=== PATIENT | male | born 1960 | race Two or more races ===

== ENCOUNTER 2023-01-05 11:07 | Inpatient (IN) | payer MEDICAID ==
[~2023-01-05] VITALS: Ht 165.1 cm; Wt 59.0 kg
--- NOTE | 2023-01-05 11:08 | NUR ---
C/O NAUSEA VOMITING, ABDOMINAL PAIN X 2 DAYS, WEAKNESS X 5 WEEKS. PT TRANSFERRED TO BED FROM WHEELCHAIR. PT WAS ABLE TO STAND AND PIVOT TO BED WITH ASSISTANCE. CONNECTED TO MONITOR. VITAL SIGNS STABLE. AAOX4. BREATHING EVEN AND NON LABORED. SAFETY PRECAUTIONS IN PLACE. AWAITING MD ORDERS.
--- NOTE | 2023-01-05 11:20 | NUR ---
DR. HINOJOSA AT BEDSIDE FOR EVAL
--- NOTE | 2023-01-05 11:29 | NUR ---
ESTABLISHED IV ACCESS 18G LEFT AC. BLOOD DRAWN AND SENT TOT LAB.
[2023-01-05] MEDS ORDERED: ONDANSETRON HCL/PF 4 MG/2 ML VIAL IVP ONE (11:30)
[2023-01-05 11:45] LABS: BASOPHILS # (AUTO) 0.1 K/uL (0.0-0.2); BASOPHILS % (AUTO) 0.5 % (0.0-2.0); EOSINOPHILS % (AUTO) 0.2 % (0.0-6.0); HEMATOCRIT 43 % (39-51); HEMOGLOBIN 14.1 g/dL (13.5-17.5); LYMPHOCYTES # (AUTO) 1.1 K/uL (0.8-4.8); LYMPHOCYTES % (AUTO) 9.1 % (20.0-44.0); MEAN CORPUSCULAR HGB CONC 33 g/dl (31.0-36.0); MEAN CORPUSCULAR VOLUME 94 fL (80-96); MONOCYTES % (AUTO) 8.2 % (2.0-12.0); NEUTROPHILS # (AUTO) 10.1 K/uL (1.8-8.9); PLATELET COUNT (AUTO) 406 K/uL (150-450); RED BLOOD CELL COUNT(AUTO) 4.57 MIL/uL (4.5-6.0); WHITE BLOOD COUNT (AUTO) 12.3 K/uL (4.3-11.0)
[2023-01-05] MEDS ORDERED: ONDANSETRON HCL/PF 4 MG/2 ML VIAL ONE (11:45)
--- NOTE | 2023-01-05 11:48 | NUR ---
PATIENT TAKEN TO CT VIA JAKI
--- NOTE | 2023-01-05 12:06 | NUR ---
SWAB FOR COVID19 SENT TO LAB
--- NOTE | 2023-01-05 12:10 | NUR ---
COLLECTIONS MANAGER AT BEDSIDE
[2023-01-05 12:11] LABS: ALBUMIN 2.3 g/dL (3.4-5.0); BILIRUBIN,DIRECT 0.1 mg/dL (0.0-0.2); BILIRUBIN,TOTAL 0.3 mg/dL (0.2-1.0); CALCIUM, SERUM 9.1 mg/dL (8.5-10.1); POTASSIUM 3.6 mmol/L (3.5-5.1); TOTAL PROTEIN, SERUM 7.6 g/dL (6.4-8.2)
--- NOTE | 2023-01-05 12:24 | NUR ---
CONVEYOR LINE BATTERY CHARGER AT BEDSIDE.
[2023-01-05] MEDS ORDERED: Thiamine 500 MG in IV D5W 250 ML IV SCH (12:30)
[2023-01-05] MEDS ORDERED: IV NS 0.9% 1,000 ML IV ONE (12:30)
[2023-01-05] MEDS ORDERED: FOLIC ACID 1 MG TABLET PO ONE (12:30)
[2023-01-05] MEDS ORDERED: Thiamine 100 MG in IV D5W 50 ML IV SCH (12:30)
[2023-01-05] MEDS ORDERED: Thiamine 500 MG in IV D5W 250 ML IV ONE (12:30)
[2023-01-05] MEDS ORDERED: Thiamine 100 MG/ML VIAL IV ONE (12:30)
--- NOTE | 2023-01-05 12:32 | NUR ---
MOVE SHEET SUBMITTED.
[2023-01-05] MEDS ORDERED: MULTIVITAMINS,THERAGRAN 1 UDTAB TABLET ONE (12:47)
[2023-01-05] MEDS ORDERED: FOLIC ACID 1 MG TABLET ONE (12:47)
[2023-01-05] MEDS: MULTIVITAMINS,THERAGRAN 1 UDTAB TABLET PO SCH (12:50)
--- NOTE | 2023-01-05 13:00 | NUR ---
DR HINOJOSA SPEAKING W/ DR VAIL, RADIOLOGIST
--- NOTE | 2023-01-05 13:04 | NUR ---
CALLED SURGERY, DR. COKER [phone] HINOJOSA.
[2023-01-05 13:05] LABS: ACETAMINOPHEN < 10 ug/ml (10-30); ALCOHOL, BLOOD < 3 mg/dL (0-0)
[2023-01-05 13:10] LABS: SERUM AMMONIA 50 umol/L (11-32)
--- NOTE | 2023-01-05 13:13 | NUR ---
[facility] CALLED HOGSHEAD MAT ASSEMBLER PAGED.
[2023-01-05] MEDS ORDERED: VANCOMYCIN 1 GM in IV D5W 250 ML IV ONE (13:30)
[2023-01-05] MEDS ORDERED: CEFEPIME 1 GM in IV D5W 50 ML IV ONE (13:30)
--- NOTE | 2023-01-05 13:45 | NUR ---
ROOM 314-2
[2023-01-05] MEDS ORDERED: Z GUARD REMEDY 4 OZ OINT TP PRN (14:00)
[2023-01-05] MEDS ORDERED: MAGNESIUM HYDROXIDE 30 ML UDC PO PRN (14:00)
[2023-01-05] MEDS ORDERED: ONDANSETRON HCL/PF 4 MG/2 ML VIAL IVP PRN (14:00)
[2023-01-05] MEDS ORDERED: ACETAMINOPHEN 325 MG TABLET PO PRN (14:00)
[2023-01-05] MEDS ORDERED: MAG HYDROX/AL HYDROX/SIMETH 30 ML UDC PO PRN (14:00)
[2023-01-05] MEDS ORDERED: MORPHINE SULFATE INJ 2 MG/ML DISP.SYRIN IV PRN (14:00)
[2023-01-05] MEDS ORDERED: MECL-182 PO (14:03)
--- NOTE | 2023-01-05 14:10 | NUR ---
REPORT GIVEN TO VIRI RN ROOM 314-2 FOR HAYDEN
--- NOTE | 2023-01-05 14:40 | NUR ---
PT TRANSFERRED TO 314 VIA [facility] ACLS PROTOCOL. WARM HANDOFF GIVEN TO RN ASSIGNED.
--- NOTE | 2023-01-05 15:00 | NUR ---
ADMISSION NOTE RECEIVED PATIENT AWAKE FROM ER VIA GURNEY C/O NAUSEA VOMITING, ABDOMINAL PAIN X 2 DAYS, WEAKNESS X 5 WEEKS A/OX4. ON RA, TOLERATING WELL. NO PAIN OR DISCOMFORT AT THIS TIME. INITIAL VITALS TAKEN, STABLE AND RECORDED. INITIAL ASSESSMENT DONE. WITH IV ACCESS AT LAC G18. SKIN IS INTACT, NOTIFIED DR. ANTONY OF THE ADMISSION. KEPT PATIENT COMFORTABLE. SAFETY MEASURES MAINTAINED: BED LOCKED AND IN LOWEST POSITION, HOB ELEVATED, SIDE RAILS UP x2, CALL LIGHT WITHIN REACH. WILL CONTINUE TO MONITOR.
[2023-01-05] MEDS: IV NS 0.9% 1,000 ML IV SCH (15:14)
[2023-01-05 16:00] VITALS: BP 167/90
--- NOTE | 2023-01-05 18:00 | NUR ---
RN NOTES PATIENT REFUSED DVT PUMP. WILL MONITOR.
--- NOTE | 2023-01-05 18:36 | NUR ---
RN CLOSING NOTES PATIENT AWAKE IN BED, A/OX4. ON RA, TOLERATING WELL. NO PAIN OR DISCOMFORT AT THIS TIME. ON RA, TOLERATING WELL. WITH IV ACCESS AT LAC G18 WITH NS AT 100/ML.. KEPT PATIENT COMFORTABLE. ALL ORDERS CARRIED OUT. DUE MEDS GIVEN. SAFETY MEASURES MAINTAINED: BED LOCKED AND IN LOWEST POSITION, HOB ELEVATED, SIDE RAILS UP x2, CALL LIGHT WITHIN REACH. WILL ENDORSED TO STAPLE PROCESSING MACHINE OPERATOR FOR HAYDEN.
[2023-01-05 20:00] VITALS: BP 152/93
[2023-01-05] MEDS: CEFEPIME 2 GM in IV D5W 100 ML IV SCH (22:15)
[2023-01-06] MEDS: IV NS 0.9% 1,000 ML IV SCH ×3 (03:26→20:19)
--- NOTE | 2023-01-06 06:09 | NUR ---
END OF SHIFT REPORT Patient in bed, A/O x2 Forgetful, confused at times. Oxygen sat high 90's in RA. RFA IV line intact, IVF continuous, On IV abx. Denies abdomen pain, no N/V. Tolerating Clear liquids. Ambulated to the bathroom, x1 assist. Gait unsteady, fall risk. Fall precaution maintained. Will endorse to oncoming RN.
[2023-01-06 06:20] LABS: BASOPHILS % (AUTO) 0.3 % (0.0-2.0); EOSINOPHILS % (AUTO) 0.6 % (0.0-6.0); HEMATOCRIT 34 % (39-51); HEMOGLOBIN 11.7 g/dL (13.5-17.5); LYMPHOCYTES % (AUTO) 9.7 % (20.0-44.0); MEAN CORPUSCULAR HGB CONC 34 g/dl (31.0-36.0); MEAN CORPUSCULAR VOLUME 93 fL (80-96); MONOCYTES # (AUTO) 1.3 K/uL (0.1-1.30); MONOCYTES % (AUTO) 12.7 % (2.0-12.0); NEUTROPHILS % (AUTO) 76.7 % (43.0-81.0); PLATELET COUNT (AUTO) 320 K/uL (150-450); RED BLOOD CELL COUNT(AUTO) 3.69 MIL/uL (4.5-6.0); WHITE BLOOD COUNT (AUTO) 10.5 K/uL (4.3-11.0)
[2023-01-06 06:39] LABS: CREATININE 0.9 mg/dL (0.6-1.3); MAGNESIUM 1.9 mg/dL (1.8-2.4); PHOSPHORUS 3.7 mg/dL (2.5-4.9); POTASSIUM 3.8 mmol/L (3.5-5.1)
--- NOTE | 2023-01-06 07:25 | NUR ---
RN OPENING NOTE RECEIVED PATIENT IN BED, AWAKE, VERBALLY RESPONSIVE. A/O X2. NO SIGNS OF ACUTE DISTRESS NOTED. ON ROOM AIR, TOLERATING WELL. NO C/O NAUSEA OR VOMITING. NOTED WITH IV ACCESS ON RIGHT FA #22G, INTACT AND PATENT, RUNNING NS @100ML/HR. CURRENTLY ON CLEAR LIQUIDS. SAFETY MEASURE IN PLACE, BED IN LOW AND LOCKED POSITION, SIDE RAILS UP X2, CALL LIGHT PLACED WITHIN EASY REACH. WILL CONTINUE TO MONITOR PATIENT.
[2023-01-06] MEDS: MULTIVITAMINS,THERAGRAN 1 UDTAB TABLET PO SCH (08:22)
[2023-01-06] MEDS: CEFEPIME 2 GM in IV D5W 100 ML IV SCH ×2 (08:22→21:40)
[2023-01-06] MEDS: PANTOPRAZOLE 40 MG VIAL IV SCH (08:22)
[2023-01-06 08:40] VITALS: BP 148/80
[2023-01-06 16:08] VITALS: BP 138/76
--- NOTE | 2023-01-06 17:49 | NUR ---
RN NOTE PATIENT C/O DIZZINESS, VITAL SIGNS TAKEN FOLLOWS: BP 142/81, P 92, R 19, T 97.8, SPO2 95% IN ROOM AIR. PATIENT DENIES ANY HEADACHE, LIGHTHEADEDNESS OR ANY KIND OF PAIN. DR. ANTONY MADE AWARE, PER MD ADMINISTER ZOFRAN 4MG. ZOFRAN 4MG IVP GIVEN. WILL CONTINUE TO MONITOR PATIENT.
--- NOTE | 2023-01-06 18:46 | NUR ---
RN CLOSING NOTE PATIENT IN BED, AWAKE, VERBALLY RESPONSIVE. A/O X2 WITH FORGETFULNESS. NO SIGNS OF ACUTE DISTRESS NOTED. REMAINS STABLE ON ROOM AIR.NO SOB NOTED, BREATHING EVEN AND UNLABORED. NO C/O NAUSEA OR VOMITING OR ABDOMINAL PAIN. IV ACCESS ON RIGHT FOREARM #22G, INTACT AND PATENT, WITH NS @100ML/HR INFUSING WELL. SAFETY MEASURE MAINTAINED, BED IN LOW AND LOCKED POSITION, SIDE RAILS UP X2, CALL LIGHT PLACED WITHIN EASY REACH. WILL ENDORSE TO NEXT SHIFT FOR CONTINUITY OF CARE.
--- NOTE | 2023-01-06 19:00 | NUR ---
RN OPENING NOTES PT IS AWAKE, A/O X 2, FORGETFUL AND CONFUSED. PT ABLE TO MAKE NEEDS KNOWN. PT ON RA, TOLERATING WELL, BREATHING EVEN AND UNLABORED AT THIS TIME. PT IV ACCESS @ RIGHT FOREARM #22G RUNNING NS @100MLS/HR, PATENT, INTACT AND FLUSHES WELL W/ NO S/S OF INFILTRATION ON SITE NOTED. SAFETY MEASURES IN PLACE. BED IN ITS LOWEST & LOCKED POSITION, SIDE RAILS UP X 3, BEDSIDE TABLE & CALL LIGHT IS EASY REACH. WILL CONTINUE TO MONITOR PT ACCORDINGLY.
[2023-01-06 20:00] VITALS: BP 130/68
--- NOTE | 2023-01-06 23:12 | NUR ---
PT REQUESTED TO CHANGE IV LINE ACCESS TO LEFT FOREARM. PT STATED "CAN YOU PUT MY IV LINE ON MY RIGHT ARM, I AM NOT COMFORTABLE WITH IT ON THIS SIDE". CHARGE NURSE, KATHRIN WAS INFORMED AND NOTIFIED. IV LINE INSERTED ON LEFT FOREARM #22G SALINE LOCK.
[2023-01-07] MEDS: IV NS 0.9% 1,000 ML IV SCH ×2 (05:31→16:14)
[2023-01-07 05:51] LABS: BASOPHILS % (AUTO) 0.4 % (0.0-2.0); EOSINOPHILS % (AUTO) 0.7 % (0.0-6.0); HEMATOCRIT 33 % (39-51); HEMOGLOBIN 11.4 g/dL (13.5-17.5); LYMPHOCYTES # (AUTO) 1.1 K/uL (0.8-4.8); LYMPHOCYTES % (AUTO) 11.8 % (20.0-44.0); MEAN CORPUSCULAR HGB CONC 34 g/dl (31.0-36.0); MEAN CORPUSCULAR VOLUME 94 fL (80-96); MONOCYTES # (AUTO) 1.2 K/uL (0.1-1.30); MONOCYTES % (AUTO) 12.5 % (2.0-12.0); NEUTROPHILS # (AUTO) 7.1 K/uL (1.8-8.9); NEUTROPHILS % (AUTO) 74.6 % (43.0-81.0); PLATELET COUNT (AUTO) 295 K/uL (150-450); RED BLOOD CELL COUNT(AUTO) 3.53 MIL/uL (4.5-6.0); WHITE BLOOD COUNT (AUTO) 9.6 K/uL (4.3-11.0)
--- NOTE | 2023-01-07 06:08 | NUR ---
RN CLOSING NOTES PT IS DOZING INTERMITTENTLY. A/O X 2, FORGETFUL AND CONFUSED, RESPONSIVE AND FOLLOWS VERBAL COMMANDS. PT ON RA, TOLERATING WELL, BREATHING EVEN AND UNLABORED AT THIS TIME W/ NO S/S OF RESPIRATORY DISTRESS. . PT IV ACCESS @ LEFT FOREARM #22G RUNNING NS @100MLS/HR, PATENT, INTACT AND FLUSHES WELL W/ NO S/S OF INFILTRATION ON SITE NOTED. MEDICATION ADMINISTERED PER MD'S ORDER. SAFETY MEASURES IN PLACE. BED IN ITS LOWEST & LOCKED POSITION, SIDE RAILS UP X 2, BEDSIDE TABLE & CALL LIGHT IS EASY REACH. WILL ENDORSE TO THE NEXT SHIFT FOR CONTINUITY OF CARE.
[2023-01-07 06:56] LABS: CALCIUM, SERUM 8.2 mg/dL (8.5-10.1); POTASSIUM 3.9 mmol/L (3.5-5.1)
--- NOTE | 2023-01-07 07:15 | NUR ---
MS RN OPENING NOTES RECEIVED PATIENT IN BED WITH HOB ELEVATED, A/O X 2, CONFUSED, APPEARS ANXIOUS, ABLE TO FOLLOW COMMANDS AND ABLE TO MAKE NEEDS KNOWN. ON RA, TOLERATING WELL, BREATHING EVEN AND UNLABORED AT THIS TIME. NOT ISAIAS ANY FORM OF APPARENT DISTRESS NOTED .IV ACCESS @ LEFT FA #22G RUNNING NS @100MLS/HR, PATENT, INTACT AND FLUSHING WELL. SAFETY MEASURES IN PLACE, BED IN LOWEST AND LOCKED POSITION, SIDE RAILS UP X 2, TRAY TABLE AND CALL LIGHT WITHIN EASY REACH. WILL CONTINUE PLAN OF CARE.
[2023-01-07 08:00] VITALS: BP 158/75
[2023-01-07] MEDS: PANTOPRAZOLE 40 MG VIAL IV SCH (08:02)
[2023-01-07] MEDS: CEFEPIME 2 GM in IV D5W 100 ML IV SCH ×2 (08:02→21:22)
[2023-01-07] MEDS: MULTIVITAMINS,THERAGRAN 1 UDTAB TABLET PO SCH (08:02)
--- NOTE | 2023-01-07 09:49 | NUR ---
RN NOTES - CALLED ADMITTING TO UPDATE DAUGHTER GRACIELA'S NUMBER TO [phone]
[2023-01-07] MEDS: LORAZEPAM INJ 2 MG/ML VIAL IV PRN ×2 (09:57→16:23)
--- NOTE | 2023-01-07 13:45 | NUR ---
RN NOTES - PATIENT PULLED HIS IV OUT AND INSISTING TO LEAVE. FAMILY IS AWARE. POSSIBLE RESTRAINTS, AWAITING MD APPROVAL.
--- NOTE | 2023-01-07 13:46 | NUR ---
RN NOTES - MD ORDERED BARB CONSULT - REFERRAL SENT TO PSYCH
[2023-01-07 16:00] VITALS: BP 158/94
--- NOTE | 2023-01-07 18:27 | NUR ---
MS RN CLOSING NOTES PATIENT IN BED WITH HOB ELEVATED, A/O X 2, CONFUSED, ANXIOUS, WATCHING TV, ABLE TO FOLLOW SIMPLE COMMANDS. ON RA, TOLERATING WELL, BREATHING EVEN AND UNLABORED AT THIS TIME. NOT ISAIAS ANY FORM OF APPARENT DISTRESS NOTED. IV ACCESS @ LEFT FA #20G RUNNING NS @100MLS/HR, PATENT, INTACT AND FLUSHING WELL. SAFETY MEASURES IN PLACE, BED IN LOWEST AND LOCKED POSITION, SIDE RAILS UP X 2, TRAY TABLE AND CALL LIGHT WITHIN EASY REACH. ALL NEEDS MET. ALL DUE MEDS GIVEN. WILL ENDORSE TO VALIDATION SCIENTIST NURSE.
[2023-01-07 20:00] VITALS: BP 140/64
--- NOTE | 2023-01-07 20:00 | NUR ---
RN OPENING NOTE PATIENT AWAKE IN BED. A/OX1. NO S/S OF DISTRESS, BREATHING WITHOUT DIFFICULTY ON ROOM AIR. LFA #20 INTACT AND PATENT W/ NS 100ML/HR. SAFETY MEASURES IN PLACE: BED LOCKED IN PLACE AND AT LOWEST POSITION, RAILS UP X2, CALL LAKE WITHIN REACH. WILL CONTINUE TO MONITOR PATIENT.
[2023-01-08] MEDS: IV NS 0.9% 1,000 ML IV SCH (01:31)
--- NOTE | 2023-01-08 06:52 | NUR ---
RN CLOSING NOTE PATIENT ASLEEP IN BED. A/OX1 (NAME). NO S/S OF DISTRESS, BREATHING WITHOUT DIFFICULTY ON ROOM AIR. LFA #20 INTACT AND PATENT. PATIENT CONTINUES TO DECLINE IVF FOR NOW. SAFETY MEASURES IN PLACE: BED LOCKED AND AT LOWEST POSITION, RAILS UP X2. CALL LAKE WITHIN REACH. WILL ENDORSE TO DAY SHIFT FOR HAYDEN.
--- NOTE | 2023-01-08 07:15 | NUR ---
MS RN OPENING NOTES RECEIVED PATIENT IN BED WITH HOB ELEVATED, A/O X 2, CONFUSED, APPEARS ANXIOUS, ABLE TO FOLLOW COMMANDS AND ABLE TO MAKE NEEDS KNOWN. ON RA, TOLERATING WELL, BREATHING EVEN AND UNLABORED AT THIS TIME. NOT IN ANY FORM OF APPARENT DISTRESS NOTED .IV ACCESS @ LEFT FA #20G RUNNING NS @100MLS/HR, PATENT, INTACT AND FLUSHING WELL. SAFETY MEASURES IN PLACE, BED IN LOWEST AND LOCKED POSITION, SIDE RAILS UP X 2, TRAY TABLE AND CALL LIGHT WITHIN EASY REACH. WILL CONTINUE PLAN OF CARE.
[2023-01-08 08:00] VITALS: BP 133/75
[2023-01-08] MEDS: CEFEPIME 2 GM in IV D5W 100 ML IV SCH (08:09)
[2023-01-08] MEDS: PANTOPRAZOLE 40 MG VIAL IV SCH (08:10)
[2023-01-08] MEDS: MULTIVITAMINS,THERAGRAN 1 UDTAB TABLET PO SCH (08:10)
[2023-01-08] MEDS: LORAZEPAM INJ 2 MG/ML VIAL IV PRN (09:43)
--- NOTE | 2023-01-08 10:06 | NUR ---
RN NOTES - PATIENT INCREASINGLY AGITATED, REFUSING CARE, TRYING TO PULL IV, WANTS TO LEAVE, MD MADE AWARE, SOFT RESTRAINTS APPLIED TO BILATERAL WRISTS SAFELY ORDERED, WILL CONTINUE TO MONITOR FOR SAFETY.
--- NOTE | 2023-01-08 10:07 | NUR ---
RN NOTES - ATIVAN 0.5 MG IV GIVEN ORDERED FOR AGITATION/ANXIETY
[2023-01-08 11:00] VITALS: BP 133/75
--- NOTE | 2023-01-08 12:00 | NUR ---
RN MS DISCHARGE NOTE PT DISCHARGED TO HOME IN STABLE CONDITION, PT IS AOX2-3, ABLE TO MAKE NEEDS KNOWN. PT IS ON ROOM AIR, BREATHING WITHOUT ANY DIFFICULTY, NOT IN ANY FORM OF RESPIRATORY DISTRESS. VITAL SIGNS TAKEN AND RECORDED. PT'S SKIN IS INTACT. DENIES PAIN NOR DISCOMFORT AT THIS TIME. ALL BELONGINGS ACCOUNTED FOR AND FORM SIGNED BY DAUGHTER. DISCHARGE INSTRUCTIONS GIVEN TO DAUGHTER GRACIELA. RESOURCES MATERIAL FOR FOLLOW UP VISITS GIVEN BY CM AND HANDED TO DAUGHTER. IV ACCESS REMOVED SAFELY, NO BLEEDING NOTED. PRESSURE GAUZE APPLIED. PATIENT LEFT THE UNIT AT AROUND 1150 VIA WHEELCHAIR. ACCOMPANIED TO THE LOBBY AND WAS TRANSFERRED TO DAUGHTER'S CAR SAFELY. MD AND CHARGE NURSE AWARE OF THE DC.
[2023-01-09] MEDS ORDERED: PANTOPRAZOLE 40 MG TABLET.DR PO SCH (09:00)
[2023-01-21] MEDS ORDERED: ACET325T53 PO (13:33)
[2023-01-21] MEDS ORDERED: AMOX-430 PO (13:33)
[2023-01-21] MEDS ORDERED: ASPI-1169 PO (13:33)
[2023-01-21] MEDS ORDERED: ATOR40TA PO (13:33)
[2023-01-21] MEDS ORDERED: CLOP75TA15 PO (13:33)
[2023-01-21] MEDS ORDERED: PANT40TA49 PO (13:33)
== END 2023-01-08 12:00 | disposition home or self-care (01) | DRG 282 ==
LOC: ER 11:07 → TELE 13:50 → MED 19:00
PROVIDERS: ADMIT Internal Medicine; ATTEND Internal Medicine
DX: K85.91 Acute pancreatitis with uninfected necrosis, unspecified (principal); R65.10 Systemic inflammatory response syndrome (SIRS) of non-infectious origin without acute organ dysfunction; E87.1 Hypo-osmolality and hyponatremia; F10.11 Alcohol abuse, in remission; I10 Essential (primary) hypertension; Z20.822 Contact with and (suspected) exposure to COVID-19; Z79.899 Other long term (current) drug therapy; K80.20 Calculus of gallbladder without cholecystitis without obstruction; K86.1 Other chronic pancreatitis; Y90.0 Blood alcohol level of less than 20 mg/100 ml; D72.829 Elevated white blood cell count, unspecified
CPT/HCPCS: 36415; 70450-TC; 76705-TC; 80048-TC; 80076-TC; 82140-TC; 82962-TC; 83605-TC; 83690-TC; 83735-TC; 84100-TC; 85025-TC; 87040-TC; 87081-TC; A4223; C9113; C9803; G0378; G0480; J0692; J2060; J2405; J3370; J3411; J7030; J7060

== ENCOUNTER 2023-01-13 18:46 | Inpatient (IN) | payer MEDICAID ==
[~2023-01-13] VITALS: Ht 165.1 cm; Wt 58.1 kg
[~2023-01-13 18:46] MED LIST: MECL-182 PO
--- NOTE | 2023-01-13 19:07 | NUR ---
BIBRA[facility] HOME, NOTED ALTERED MENTAL STATUS PER DAUGHTER, TACHYCARDIC,BG 170 NUCLEAR PHYSICIAN. PT TRANSFERRED TO BED AND CONNECTED TO MONITOR. BREATHING EVEN AND UNLABORED. AWAITING MD ORDERS.
[2023-01-13] MEDS ORDERED: ONDANSETRON HCL/PF 4 MG/2 ML VIAL ONE (19:17)
[2023-01-13] MEDS ORDERED: ONDANSETRON HCL/PF 4 MG/2 ML VIAL IVP ONE (19:30)
[2023-01-13] MEDS ORDERED: IV NS 0.9% 1,000 ML BAG IV ONE (19:30)
--- NOTE | 2023-01-13 19:34 | NUR ---
COVID SWAB DONE AND SENT TO LAB
[2023-01-13 20:06] LABS: SERUM AMMONIA 21 umol/L (11-32)
[2023-01-13 20:13] LABS: ALANINE AMINOTRANSFERASE 25 U/L (12-78); ALCOHOL, BLOOD < 3 mg/dL (0-0); ALKALINE PHOSPHATASE 89 U/L (46-116); ASPARTATE AMINOTRANSFERASE 26 U/L (15-37); BILIRUBIN,DIRECT 0.2 mg/dL (0.0-0.2); BILIRUBIN,TOTAL 0.5 mg/dL (0.2-1.0); CALCIUM, SERUM 8.6 mg/dL (8.5-10.1); CARBON DIOXIDE 27 mmol/L (21-32); CHLORIDE 98 mmol/L (98-107); CREATININE 0.9 mg/dL (0.6-1.3); GLUCOSE 125 mg/dL (74-106); SODIUM SERUM 131 mmol/L (136-145); TOTAL PROTEIN, SERUM 6.8 g/dL (6.4-8.2); UREA NITROGEN, BLOOD 15 mg/dL (7-18)
[2023-01-13 20:14] LABS: BASOPHILS % (AUTO) 0.1 % (0.0-2.0); EOSINOPHILS % (AUTO) 0.1 % (0.0-6.0); HEMATOCRIT 34 % (39-51); HEMOGLOBIN 11.1 g/dL (13.5-17.5); LYMPHOCYTES # (AUTO) 1.1 K/uL (0.8-4.8); LYMPHOCYTES % (AUTO) 5.6 % (20.0-44.0); MEAN CORPUSCULAR HGB CONC 32 g/dl (31.0-36.0); MEAN CORPUSCULAR VOLUME 93 fL (80-96); MONOCYTES # (AUTO) 2.5 K/uL (0.1-1.30); MONOCYTES % (AUTO) 12.5 % (2.0-12.0); NEUTROPHILS # (AUTO) 16.2 K/uL (1.8-8.9); NEUTROPHILS % (AUTO) 81.7 % (43.0-81.0); PLATELET COUNT (AUTO) 404 K/uL (150-450); RED BLOOD CELL COUNT(AUTO) 3.69 MIL/uL (4.5-6.0); WHITE BLOOD COUNT (AUTO) 19.8 K/uL (4.3-11.0)
[2023-01-13 20:18] LABS: THYROID STIMULATING HORMONE 0.353 uIU/mL (0.358-3.74)
--- NOTE | 2023-01-13 20:33 | NUR ---
STILL UNABLE TO PROVIDE URINE AT THIS TIME
--- NOTE | 2023-01-13 20:57 | NUR ---
URINE SAMPLE SENT TO LAB
--- NOTE | 2023-01-13 21:45 | NUR ---
RM 307-1
[2023-01-13 21:55] LABS: BILIRUBIN,URINE 1+ (NEGATIVE); COLOR,URINE YELLOW (YELLOW); LEUKOCYTE ESTERASE ,URINE NEGATIVE (NEGATIVE); NITRITE, URINE NEGATIVE (NEGATIVE); PROTEIN,URINE TRACE mg/dl (NEGATIVE); UGLUCOSE NEGATIVE (NEGATIVE)
[2023-01-13 22:08] LABS: BACTERIA,URINE None seen /HPF (None Seen); MUCUS,URINE Few /LPF (None Seen); RBC,URINE 0-2 /HPF (0-2); SQUAMOUS EPITHELIAL CELL,UR 0-2 /HPF (None Seen); WBC,URINE 0-2 /HPF (0-3)
--- NOTE | 2023-01-13 22:12 | NUR ---
REPORT GIVEN TO SYD CRUZ FOR HAYDEN
[2023-01-13 22:25] VITALS: BP 138/74
--- NOTE | 2023-01-13 22:29 | NUR ---
TRANSFERRED TO BED 307 IN STABLE CONDITION
[2023-01-13] MEDS ORDERED: MAG HYDROX/AL HYDROX/SIMETH 30 ML UDC PO PRN (22:30)
[2023-01-13] MEDS ORDERED: ACETAMINOPHEN 325 MG TABLET PO PRN (22:30)
[2023-01-13] MEDS ORDERED: hydrALAZINE HCL IV 20 MG VIAL IV PRN ×2 (22:30)
--- NOTE | 2023-01-13 22:30 | NUR ---
REMOTE CONTROL ASSEMBLERPLACER MINER NOTE RECEIVED REPORT FROM ER NURSE MILTON. PT IS BEING ADMITTED IN ROOM 307-1 FOR ALTERED MENTAL STATUS. PT A/O X2, ABLE TO MAKE SIMPLE NEEDS KNOWN. UNABLE TO AMBULATE. NO S/S OF RESPIRATORY DISTRESS NOTED. NO C/O PAIN OR DISCOMFORT AT THIS TIME. EKG COMPLETED AT BEDSIDE, RESULT: SR. PT'S DAUGHTER AT BED SIDE. SKIN ASSESSMENT DONE. PT HAS SKIN TEAR TO RIGHT LEG BELOW KNEE, RIGHT KNEE SCAB, RIGHT ELBOW SCAB, AND REDNESS, LEFT ARM BRUISE, SACRUM REDNESS. IV ACCESS TO RIGHT AC #18G, INTACT, AND PATENT. SAFETY MEASURES IN PLACE: BED LOCKED IN LOW POSITION, SR UP X 2, CALL LIGHT WITHIN REACH. WILL CONTINUE TO MONITOR PT.
[2023-01-13] MEDS ORDERED: CEFTRIAXONE 1 G in IV D5W 50 ML IV SCH (23:00)
[2023-01-13] MEDS: ENOXAPARIN SODIUM 40 MG/0.4 ML DISP.SYRIN SQ SCH (23:21)
--- NOTE | 2023-01-13 23:30 | NUR ---
PARTY PLAN SALES UNIT SALES LEADER NOTE CONSENT FOR MRI OF HEAD SIGNED BY PT'S DAUGHTER FELIPE.
[2023-01-13] MEDS ORDERED: CEFTRIAXONE 1 G VIAL ONE (23:47)
[2023-01-14] VITALS: BP 127/67
[2023-01-14] MEDS: BLOOD SUGAR DIAGNOSTIC 1 EACH STRIP IN SCH ×7 (00:55→22:41)
[2023-01-14 04:00] VITALS: BP 139/72
[2023-01-14 06:26] LABS: BASOPHILS % (AUTO) 0.1 % (0.0-2.0); EOSINOPHILS % (AUTO) 0.2 % (0.0-6.0); HEMATOCRIT 31 % (39-51); HEMOGLOBIN 10.4 g/dL (13.5-17.5); LYMPHOCYTES % (AUTO) 6.3 % (20.0-44.0); MEAN CORPUSCULAR HGB CONC 33 g/dl (31.0-36.0); MEAN CORPUSCULAR VOLUME 94 fL (80-96); MONOCYTES # (AUTO) 2.3 K/uL (0.1-1.30); MONOCYTES % (AUTO) 15.4 % (2.0-12.0); NEUTROPHILS # (AUTO) 11.8 K/uL (1.8-8.9); PLATELET COUNT (AUTO) 331 K/uL (150-450); RED BLOOD CELL COUNT(AUTO) 3.35 MIL/uL (4.5-6.0); WHITE BLOOD COUNT (AUTO) 15.2 K/uL (4.3-11.0)
--- NOTE | 2023-01-14 06:43 | NUR ---
NET WEB APPLICATION DEVELOPER CLOSING NOTE LEFT PATIENT IN BED, AWAKE. PT A/O X2, ABLE TO MAKE NEEDS KNOWN. ON ROOM AIR, TOLERATING RA WELL. BREATHING EVEN AND UNLABORED. ON TELE MONITOR SHOWING SINUS RHYTHM. DENIES ANY CHEST PAIN, NO S/SX OF CARDIAC DISTRESS NOTED. IV ACCESS TO RIGHT AC #18G, INTACT AND PATENT, SALINE LOCKED. SAFETY MEASURE IN PLACE. BED IN LOW AND LOCKED POSITION, SIDE RAILS UP X2, CALL LIGHT WITHIN REACH. WILL ENDORSE PATIENT TO INCOMING SHIFT NURSE FOR HAYDEN.
[2023-01-14 07:03] LABS: ALBUMIN 1.7 g/dL (3.4-5.0); BILIRUBIN,TOTAL 0.4 mg/dL (0.2-1.0); CREATININE 0.8 mg/dL (0.6-1.3); PHOSPHORUS 3.8 mg/dL (2.5-4.9); TOTAL PROTEIN, SERUM 6.1 g/dL (6.4-8.2)
--- NOTE | 2023-01-14 07:30 | NUR ---
SUPERVISOR BRIDGES AND BUILDINGS NOTES PT IN BED, AWAKE, ALERT TO SELF, VERBALLY RESPONSIVE, ABLE TO MAKE NEEDS KNOWN, WITH SOME PERIODS OF CONFUSION, NO COMPLAINT OF PAIN, BREATHING PATTERN NORMAL, CALL LIGHT WITHIN REACH, SAFETY PRECAUTIONS OBSERVED.
[2023-01-14 07:32] LABS: THYROID STIMULATING HORMONE 0.405 uIU/mL (0.358-3.74)
[2023-01-14 08:00] VITALS: BP 147/76
[2023-01-14] MEDS: MECLIZINE HCL 12.5 MG TABLET PO SCH (08:38)
[2023-01-14] MEDS: PANTOPRAZOLE 40 MG VIAL IV SCH (08:38)
[2023-01-14] MEDS ORDERED: ASPIRIN EC 325 MG TABLET.DR PO SCH (09:00)
--- NOTE | 2023-01-14 10:37 | NUR ---
DIRECTOR OF CARDIOLOGY NOTES ASSISTED PT WITH BREAKFAST, ASPIRATION PRECAUTIONS OBSERVED, PT SEEN BY PHYSICAL THERAPIST, RECOMMENDATIONS NOTED.
[2023-01-14 14:59] LABS: LYMPHOCYTES % (MANUAL) 6 % (16-48); MONOCYTES % (MANUAL) 13 % (0-11.0); NEUTROPHILS % (MANUAL) 81 (42-76)
[2023-01-14 16:04] VITALS: BP 128/65
--- NOTE | 2023-01-14 18:10 | NUR ---
RN MS NOTES PT IN BED, AWAKE, ALERT WITH PERIODS OF CONFUSION, WATCHING TV, DAUGHTER GAVE CONSENT FOR CTA BRAIN AND CAROTID, PT COMPLETED MRI BRAIN TODAY, ASSISTED WITH MEALS, KEPT CLEAN AND DRY, SAFETY PRECAUTIONS OBSERVED.
--- NOTE | 2023-01-14 19:25 | NUR ---
RN Opening Note Received patient in bed; awake, alert and oriented x 1-2 with periods of confusion. On room air; tolerating well saturating @ 99%. Breathing even and nonlabored. Not in any form of respiratory or cardiac distress. Denies any pain or discomfort. With IV access on left ac 20g; patent, intact and saline locked. Safety precautions implemented: call light and table within reach, side rails up x 3, bed in lowest and locked position. Will continue plan of care.
[2023-01-14 20:00] VITALS: BP 142/71
[2023-01-14] MEDS: ENOXAPARIN SODIUM 40 MG/0.4 ML DISP.SYRIN SQ SCH (21:52)
--- NOTE | 2023-01-14 21:52 | NUR ---
RN Note H/H: 10.. Platelet ct: 331. No s/s of bleeding. Lovenox 40 mg given SQ as ordered. Kept comfortable in bed. Will continue to monitor.
[2023-01-14] MEDS: SIMVASTATIN 20 MG TABLET PO SCH (21:53)
[2023-01-14] MEDS: ATORVASTATIN 40 MG TABLET PO SCH (21:53)
--- NOTE | 2023-01-14 22:32 | NUR ---
RN Note Blood sugar checked: 101 mg/dl. No insulin coverage given per sliding scale.
[2023-01-15] MEDS: CEFTRIAXONE 1 G in IV D5W 50 ML IV SCH (00:11)
[2023-01-15 06:18] LABS: ALBUMIN 1.7 g/dL (3.4-5.0); BILIRUBIN,TOTAL 0.6 mg/dL (0.2-1.0); CREATININE 0.8 mg/dL (0.6-1.3); POTASSIUM 4.1 mmol/L (3.5-5.1); TOTAL PROTEIN, SERUM 6.2 g/dL (6.4-8.2)
[2023-01-15] MEDS: BLOOD SUGAR DIAGNOSTIC 1 EACH STRIP IN SCH ×4 (06:48→22:37)
--- NOTE | 2023-01-15 07:08 | NUR ---
RN Closing Note Patient in bed; awake, a/o x 1-2 with periods of confusion. Stable on room air. In no acute distress. Denies any pain or discomfort. With IV access on right ac 20g; intact, patent and saline locked. Safety precautions maintained: call light and table within reach, side rails up x 3, bed in lowest and locked position. Endorsed to morning shift for ross.
--- NOTE | 2023-01-15 07:30 | NUR ---
PT RECEIVED RESTING COMFORTABLY IN BED WITH EYES CLOSED. NO S/S OR C/O PAIN OR DISTRESS NOTED. SIDE RAILS UP X2, CALL LIGHT LEFT WITHIN REACH. WILL CONTINUE PLAN OF CARE.
[2023-01-15 08:24] VITALS: BP 147/78
[2023-01-15] MEDS: MECLIZINE HCL 12.5 MG TABLET PO SCH (08:39)
[2023-01-15] MEDS: PANTOPRAZOLE 40 MG VIAL IV SCH (08:39)
[2023-01-15] MEDS ORDERED: ASPIRIN EC 325 MG TABLET.DR PO SCH (09:00)
[2023-01-15] MEDS ORDERED: ASPIRIN 81 MG TAB.CHEW PO SCH (09:00)
[2023-01-15 09:55] LABS: BASOPHILS % (AUTO) 0.2 % (0.0-2.0); EOSINOPHILS % (AUTO) 0.1 % (0.0-6.0); HEMATOCRIT 32 % (39-51); HEMOGLOBIN 10.4 g/dL (13.5-17.5); LYMPHOCYTES # (AUTO) 1.3 K/uL (0.8-4.8); LYMPHOCYTES % (AUTO) 8.6 % (20.0-44.0); MEAN CORPUSCULAR HGB CONC 33 g/dl (31.0-36.0); MEAN CORPUSCULAR VOLUME 93 fL (80-96); MONOCYTES # (AUTO) 2.3 K/uL (0.1-1.30); MONOCYTES % (AUTO) 14.8 % (2.0-12.0); NEUTROPHILS # (AUTO) 11.9 K/uL (1.8-8.9); NEUTROPHILS % (AUTO) 76.3 % (43.0-81.0); PLATELET COUNT (AUTO) 389 K/uL (150-450); RED BLOOD CELL COUNT(AUTO) 3.43 MIL/uL (4.5-6.0); WHITE BLOOD COUNT (AUTO) 15.6 K/uL (4.3-11.0)
[2023-01-15] MEDS: ASPIRIN 81 MG TAB.CHEW PO SCH (09:57)
[2023-01-15] MEDS ORDERED: POLYVINYL ALCOHOL 15 ML BOTTLE EACHEYE PRN (15:30)
[2023-01-15 16:49] VITALS: BP 135/71
--- NOTE | 2023-01-15 19:20 | NUR ---
MS RN Opening Note Received patient in bed; awake, alert and oriented x 2 with periods of confusion. On room air; well tolerated saturating @ 98%. Breathing even and nonlabored. Not in any form of respiratory or cardiac distress. Denies any pain or discomfort. With IV access on right ac 20g; patent, intact and saline locked. Safety precautions implemented: call light and table within reach, side rails up x 3, bed in lowest locked position. Will continue plan of care.
--- NOTE | 2023-01-15 19:26 | NUR ---
CHANGE OF SHIFT REPORT PATIENT RESTING COMFORTABLY IN BED. NO S/S OR C/O PAIN OR DISTRESS NOTED. SIDE RAILS UP X2, CALL LIGHT LEFT WITHIN REACH. PT KEPT CLEAN, DRY, AND COMFORTABLE. NO SIGNIFICANT CHANGES SINCE PREVIOUS SHIFT. WILL GIVE REPORT TO LINDA CRUZ.
[2023-01-15 20:00] VITALS: BP 141/79
[2023-01-15] MEDS: SIMVASTATIN 20 MG TABLET PO SCH (21:35)
[2023-01-15] MEDS: ATORVASTATIN 40 MG TABLET PO SCH (21:35)
[2023-01-15] MEDS: ENOXAPARIN SODIUM 40 MG/0.4 ML DISP.SYRIN SQ SCH (21:39)
[2023-01-16] MEDS: CEFTRIAXONE 1 G in IV D5W 50 ML IV SCH (00:07)
[2023-01-16] MEDS: BLOOD SUGAR DIAGNOSTIC 1 EACH STRIP IN SCH ×4 (05:42→21:58)
[2023-01-16 06:08] LABS: BASOPHILS % (AUTO) 0.1 % (0.0-2.0); EOSINOPHILS % (AUTO) 0.3 % (0.0-6.0); HEMATOCRIT 30 % (39-51); LYMPHOCYTES # (AUTO) 1.2 K/uL (0.8-4.8); LYMPHOCYTES % (AUTO) 6.7 % (20.0-44.0); MEAN CORPUSCULAR HGB CONC 33 g/dl (31.0-36.0); MEAN CORPUSCULAR VOLUME 93 fL (80-96); MONOCYTES # (AUTO) 2.2 K/uL (0.1-1.30); MONOCYTES % (AUTO) 12.8 % (2.0-12.0); NEUTROPHILS # (AUTO) 13.9 K/uL (1.8-8.9); NEUTROPHILS % (AUTO) 80.1 % (43.0-81.0); PLATELET COUNT (AUTO) 373 K/uL (150-450); RED BLOOD CELL COUNT(AUTO) 3.25 MIL/uL (4.5-6.0); WHITE BLOOD COUNT (AUTO) 17.4 K/uL (4.3-11.0)
--- NOTE | 2023-01-16 06:50 | NUR ---
RN Closing Note Patient in bed; awake, a/o x 2 with periods of confusion. Stable on room air. In no acute distress. No c/o any pain or discomfort. With IV access on right ac 20g; patent, intact and saline locked. Safety precautions maintained: call light and table within reach, side rails up x 3, bed in lowest locked position. Endorsed to morning shift for ross.
[2023-01-16 07:03] LABS: CALCIUM, SERUM 8.1 mg/dL (8.5-10.1); CREATININE 0.9 mg/dL (0.6-1.3); POTASSIUM 3.7 mmol/L (3.5-5.1)
[2023-01-16 08:13] VITALS: BP 117/59
[2023-01-16] MEDS: PANTOPRAZOLE 40 MG TABLET.DR PO SCH (08:22)
[2023-01-16] MEDS: ASPIRIN 81 MG TAB.CHEW PO SCH (08:22)
[2023-01-16] MEDS: MECLIZINE HCL 12.5 MG TABLET PO SCH (08:22)
[2023-01-16] MEDS ORDERED: PANTOPRAZOLE 40 MG/PACK PACK NG SCH (09:00)
[2023-01-16 16:01] VITALS: BP 119/76
[2023-01-16] MEDS: PIPERACILLIN /TAZOBACTAM 3.375 G in IV D5W 50 ML IV SCH ×2 (17:35→23:27)
--- NOTE | 2023-01-16 19:30 | NUR ---
MS RN OPENING NOTE RECEIVED PATIENT FROM AM NURSE, AWAKE IN BED, A/O X 2; STABLE ON ROOM AIR BREATHING EVENLY AND UNLABORED, NOT IN ANY DISTRESS. WITH IV ACCESS LEFT HAND G#22, INTACT AND FLUSHING WELL; ENCOURAGED VERBALIZATION OF NEEDS; SAFETY MEASURES IMPLEMENTED, BED IN LOWEST AND LOCKED POSITION. SIDE RAILS UP X2, TRAY TABLE AND CALL LIGHT WITHIN EASY REACH. WILL CONTINUE TO MONITOR THROUGHOUT [facility]
[2023-01-16 20:00] VITALS: BP 130/85
[2023-01-16] MEDS: ATORVASTATIN 40 MG TABLET PO SCH (21:12)
[2023-01-16] MEDS: ENOXAPARIN SODIUM 40 MG/0.4 ML DISP.SYRIN SQ SCH (21:12)
[2023-01-17] MEDS: PIPERACILLIN /TAZOBACTAM 3.375 G in IV D5W 50 ML IV SCH ×4 (05:27→23:38)
[2023-01-17 06:15] LABS: BASOPHILS % (AUTO) 0.1 % (0.0-2.0); EOSINOPHILS % (AUTO) 0.3 % (0.0-6.0); HEMATOCRIT 29 % (39-51); HEMOGLOBIN 9.5 g/dL (13.5-17.5); LYMPHOCYTES # (AUTO) 1.2 K/uL (0.8-4.8); LYMPHOCYTES % (AUTO) 7.1 % (20.0-44.0); MEAN CORPUSCULAR HGB CONC 33 g/dl (31.0-36.0); MEAN CORPUSCULAR VOLUME 92 fL (80-96); MONOCYTES # (AUTO) 1.9 K/uL (0.1-1.30); MONOCYTES % (AUTO) 11.4 % (2.0-12.0); NEUTROPHILS # (AUTO) 13.5 K/uL (1.8-8.9); NEUTROPHILS % (AUTO) 81.1 % (43.0-81.0); PLATELET COUNT (AUTO) 365 K/uL (150-450); RED BLOOD CELL COUNT(AUTO) 3.11 MIL/uL (4.5-6.0); WHITE BLOOD COUNT (AUTO) 16.6 K/uL (4.3-11.0)
[2023-01-17 06:36] LABS: POTASSIUM 3.8 mmol/L (3.5-5.1)
[2023-01-17] MEDS: BLOOD SUGAR DIAGNOSTIC 1 EACH STRIP IN SCH ×4 (06:36→21:53)
--- NOTE | 2023-01-17 06:45 | NUR ---
MS RN CLOSING NOTE PATIENT ASLEEP IN BED, A/O X 2; STABLE ON ROOM AIR BREATHING EVENLY AND UNLABORED, WITH NO SIGNS OF RESPIRATORY DISTRESS; WITH IV ACCESS LEFT HAND G#22, INTACT AND FLUSHING WELL; ADMINISTERED MEDICATIONS PRESCRIBED; PATIENT'S NEEDS ATTENDED; MONITORED PATIENT ACCORDINGLY; SAFETY MEASURES IMPLEMENTED, BED IN LOWEST AND LOCKED POSITION. SIDE RAILS UP X 3, TRAY TABLE AND CALL LIGHT WITHIN EASY REACH. WILL ENDORSE TO AM NURSE FOR HAYDEN.
[2023-01-17 07:00] VITALS: BP 131/71
--- NOTE | 2023-01-17 07:11 | NUR ---
MS OPENING NOTES RECEIVED PATIENT AWAKE IN BED, A/Ox2, ABLE TO MAKE NEEDS KNOWN. ON ROOM AIR, NO S/S OF RESPIRATORY DISTRESS. IV ACCESS R FA #22G S/L, INTACT AND PATENT. PATIENT INCONTINENT USES DIAPER. ON BEDREST. SKIN ISSUES: R LEG SCAB, R KNEE SCAB, R ELBOW SCAB, SACRAL REDNESS, L ARM BRUISE. NO C/O OF PAIN OR DISCOMFORT. SAFETY MEASURES IN PLACE: BED LOCKED AND IN LOWEST POSITION, HOB ELEVATED, SIDE RAILS UPx2, AND CALL LIGHT WITHIN REACH. WILL CONTINUE TO MONITOR.
[2023-01-17] MEDS: PANTOPRAZOLE 40 MG TABLET.DR PO SCH (08:03)
[2023-01-17] MEDS: ASPIRIN 81 MG TAB.CHEW PO SCH (08:03)
[2023-01-17] MEDS: MECLIZINE HCL 12.5 MG TABLET PO SCH (08:03)
--- NOTE | 2023-01-17 08:40 | NUR ---
RN NOTES PATIENT TRANSFERRED TO TELEMETRY. ATTACHED TO MONITOR. SHOWING SINUS TACHY HR 107, NO S/S OF PAIN OR DISCOMFORT, NO S/S OF CARDIAC DISTRESS OR DISCOMFORT NOTED.
--- NOTE | 2023-01-17 11:23 | NUR ---
RN NOTES PATIENT IN BED, SHOWS NO S/S OF WARNING SIGNS OF STROKE. EPISODES OF CONFUSION NOTED, REORIENTED NEEDED. WILL CONTINUE TO MONITOR.
[2023-01-17 12:00] VITALS: BP 136/69
--- NOTE | 2023-01-17 13:06 | NUR ---
Social Work Note/PH9 Post Stroke Depression Screening: utility maintenance worker met with patient and conducted a PHQ-9 (Post Stroke Depression Screening) in which the patient score of a level of 4 for depression. Patient does not require a psychiatric consult at this time.
--- NOTE | 2023-01-17 13:07 | NUR ---
SW Consult: SW consult requested for CVA. SW met with patient. Pt appeared to be pleasant. Pt was alert and oriented x2 (self,situation). Pt was able to have a conversation with pt and was able to maintain eye contact. Pt stated that he was brought to the hospital due to a heart attack. Pt stated that he lives with his 88 year old mother located at [address] [place] [address]; ([phone]). SW assessed for mental illness, pt denied. Pt denied suicidal or homicidal ideation. Pt denied visual/auditory hallucinations. SW conduced PHQ-9 assessment and pt scored 4 does not require a psych consult. SW had given pt's daughter Veronica ([phone]) resources who was outside the room. Daughter stated that she lives in [place] and will be flying out by tomorrow. She stated that she has discussed with case management that pt will need a SNF. DC Plan: Pt will need a nursing facility or case management will follow pt's recommendation. Resources were given and documented separately.
--- NOTE | 2023-01-17 13:07 | NUR ---
Social Work Stroke Resources: housekeeper/custodian/laundry worker met with patient and provided stroke referrals such as: Stroke Family Warmline at (6-284-1-STROKE) and additional information on caring for a stroke survivor ( ). housekeeper/custodian/laundry worker also educated patient on the signs of Stroke and to immediately call 911. housekeeper/custodian/laundry worker provided education on the signs of stroke and provided educational packet with information: Dietary food, what stroke is, risks, emotional support, finding support, medical management, and effects of stroke.
[2023-01-17 16:00] VITALS: BP 125/88
--- NOTE | 2023-01-17 18:42 | NUR ---
IMAGING SCIENCE PROFESSOR CLOSING NOTES PATIENT AWAKE IN BED, A/Ox2, ABLE TO MAKE NEEDS KNOWN. ON ROOM AIR, NO S/S OF RESPIRATORY DISTRESS. IV ACCESS R FA #22G S/L, INTACT AND PATENT. ON TELE MONITORING SHOWING SINUS TACH HR 112, NO C/O OF CHEST PAIN OR DISCOMFORT. PATIENT INCONTINENT USES DIAPER. ON BEDREST. SKIN ISSUES: R LEG SCAB, R KNEE SCAB, R ELBOW SCAB, SACRAL REDNESS, L ARM BRUISE. NO C/O OF PAIN OR DISCOMFORT. ALL DUE MEDICATION ADMINISTERED. SAFETY MEASURES MAINTAINED: BED LOCKED AND IN LOWEST POSITION, HOB ELEVATED, SIDE RAILS UPx2, AND CALL LIGHT WITHIN REACH. WILL ENDORSE TO NEXT SHIFT ANY HAYDEN.
--- NOTE | 2023-01-17 19:39 | NUR ---
MS RN OPENING NOTE RECEIVED PATIENT FROM AM NURSE, AWAKE IN BED, ALERT AND ORIENTED X 2, DELAYED SPEECH; STABLE ON ROOM AIR BREATHING EVENLY AND UNLABORED, NOT IN ANY DISTRESS; WITH IV ACCESS LEFT HAND G#22, INTACT AND FLUSHING WELL; NOTED SKIN ISSUES; ENCOURAGED VERBALIZATION OF NEEDS; SAFETY MEASURES IMPLEMENTED, BED IN LOWEST AND LOCKED POSITION. SIDE RAILS UP X2, TRAY TABLE AND CALL LIGHT WITHIN EASY REACH. WILL CONTINUE TO MONITOR THROUGHOUT SHIFT Addendum: 01/17/23 at 1944 by KELLY AMBROCIO RN ERROR
--- NOTE | 2023-01-17 19:44 | NUR ---
PHOTOGEOLOGIST OPENING NOTE RECEIVED PATIENT FROM AM NURSE, AWAKE IN BED, ALERT AND ORIENTED X 2, DELAYED SPEECH; STABLE ON ROOM AIR BREATHING EVENLY AND UNLABORED, NOT IN ANY DISTRESS; WITH IV ACCESS LEFT HAND G#22, INTACT AND FLUSHING WELL; NOTED SKIN ISSUES; ENCOURAGED VERBALIZATION OF NEEDS; SAFETY MEASURES IMPLEMENTED, BED IN LOWEST AND LOCKED POSITION. SIDE RAILS UP X2, TRAY TABLE AND CALL LIGHT WITHIN EASY REACH. WILL CONTINUE TO MONITOR THROUGHOUT SHIFT
[2023-01-17 20:22] VITALS: BP 142/75
[2023-01-17] MEDS: ATORVASTATIN 40 MG TABLET PO SCH (21:18)
[2023-01-17] MEDS: ENOXAPARIN SODIUM 40 MG/0.4 ML DISP.SYRIN SQ SCH (21:21)
[2023-01-18 00:11] VITALS: BP 136/69
[2023-01-18] MEDS: PIPERACILLIN /TAZOBACTAM 3.375 G in IV D5W 50 ML IV SCH ×4 (05:56→23:46)
[2023-01-18 05:59] LABS: BASOPHILS % (AUTO) 0.1 % (0.0-2.0); EOSINOPHILS % (AUTO) 0.3 % (0.0-6.0); HEMATOCRIT 30 % (39-51); HEMOGLOBIN 9.9 g/dL (13.5-17.5); LYMPHOCYTES % (AUTO) 7.6 % (20.0-44.0); MEAN CORPUSCULAR HGB CONC 33 g/dl (31.0-36.0); MEAN CORPUSCULAR VOLUME 93 fL (80-96); MONOCYTES # (AUTO) 1.5 K/uL (0.1-1.30); NEUTROPHILS # (AUTO) 11.1 K/uL (1.8-8.9); PLATELET COUNT (AUTO) 328 K/uL (150-450); RED BLOOD CELL COUNT(AUTO) 3.21 MIL/uL (4.5-6.0); WHITE BLOOD COUNT (AUTO) 13.7 K/uL (4.3-11.0)
[2023-01-18 06:30] LABS: CALCIUM, SERUM 7.9 mg/dL (8.5-10.1); CREATININE 0.9 mg/dL (0.6-1.3); POTASSIUM 3.8 mmol/L (3.5-5.1)
[2023-01-18] MEDS: BLOOD SUGAR DIAGNOSTIC 1 EACH STRIP IN SCH ×4 (06:32→22:00)
--- NOTE | 2023-01-18 06:44 | NUR ---
FLOWERS SALESPERSON CLOSING NOTE PATIENT AWAKE IN BED, ALERT AND ORIENTED X 2, DELAYED SPEECH; STABLE ON ROOM AIR BREATHING EVENLY AND UNLABORED, NOT IN ANY FORM OF DISTRESS; WITH IV ACCESS RIGHT HAND G#22 KVO, INTACT AND FLUSHING WELL; NOTED SKIN ISSUES; HOOKED TO LICENSED NUCLEAR OPERATOR CURRENTLY READING SINUS TACHYCARDIA 100S BPM; ADMINISTERED MEDICATIONS PRESCRIBED; PATIENT'S NEEDS ATTENDED; MONITORED PATIENT ACCORDINGLY; SAFETY MEASURES IMPLEMENTED, BED IN LOWEST AND LOCKED POSITION. SIDE RAILS UP X2, TRAY TABLE AND CALL LIGHT WITHIN EASY REACH; WILL ENDORSE TO AM NURSE FOR HAYDEN.
[2023-01-18 07:00] VITALS: BP 133/71
--- NOTE | 2023-01-18 07:25 | NUR ---
COSTUME DESIGN TEACHER OPENING NOTE RECEIVED PATIENT AWAKE IN BED. A/O X 2, ENCOURAGED VERBALIZATION OF NEEDS. STABLE ON ROOM AIR, NO SIGN OF ACUTE RESPIRATORY DISTRESS NOTED. WITH IV ACCESS ON RIGHT HAND #22G, C/D/I. ATTACHED TO CODIFIER WITH CURRENT READING OF ST, HR-103. NO SIGN OF CARDIAC DISTRESS NOTED. SAFETY MEASURES IN PLACE: BED IN LOWEST AND LOCKED POSITION, SIDE RAILS UP X2, TRAY TABLE AND CALL LIGHT WITHIN EASY REACH. WILL CONTINUE TO MONITOR.
[2023-01-18] MEDS: PANTOPRAZOLE 40 MG TABLET.DR PO SCH (07:40)
[2023-01-18] MEDS: ASPIRIN 81 MG TAB.CHEW PO SCH (08:55)
[2023-01-18] MEDS: MECLIZINE HCL 12.5 MG TABLET PO SCH (08:55)
--- NOTE | 2023-01-18 09:19 | NUR ---
RN, please call Radiology for patient Sosa. We've been trying to do the CT HEAD and Carotid Angiogram since last week, but no nurse has been able to get consent form signed and 20G IV in the AC. No one has called Radiology to follow up. Please call Radiology when Consent form is signed and 20g IV is in.
--- NOTE | 2023-01-18 10:59 | NUR ---
TAR BOILER NOTES RECEIVED PT FROM NANCY WEATHERS, PT IN BED, ASLEEP, EASY TO AROUSE, ALERT TO SELF, NO SIGN OF PAIN OR DISTRESS, CALL LIGHT WITHIN REACH, IV FLUIDS INFUSING WELL, KEPT COMFORTABLE IN BED.
[2023-01-18 12:00] VITALS: BP 134/72
[2023-01-18] MEDS ORDERED: IOHEXOL-350 100 ML VIAL IV ONE (15:18)
[2023-01-18] MEDS ORDERED: IV NS 0.9% 250 ML IV ONE (15:19)
[2023-01-18 16:00] VITALS: BP 143/71
--- NOTE | 2023-01-18 18:36 | NUR ---
ELECTRICAL AND INSTRUMENT MECHANIC NOTES PT IN BED, AWAKE, ALERT AND VERBALLY RESPONSIVE, NO COMPLAINT OF PAIN, NOT IN DISTRESS, CALL LIGHT WITHIN REACH, PM MEDS GIVEN ORDERED, ABLE TO EAT DINNER, RECEIVED A CALL FROM DR. SHANNON REGARDING PT'S CTA BRAIN RESULT, FORWARDED RESULT TO DR. EAGLE AND DR. LEBLANC, WHO STATED THAT SHE WILL FORWARD IT TO DR. GEIGER WELL, NO CHANGE IN PT'S LOC, PM CARE PROVIDED.
--- NOTE | 2023-01-18 19:26 | NUR ---
STRANDING MACHINE OPERATOR HELPER NOTES DR. GEIGER ACKNOWLEDGED RECEIPT OF PT'S CTA BRAIN RESULT.
[2023-01-18 20:00] VITALS: BP 137/74
--- NOTE | 2023-01-18 20:00 | NUR ---
RUBBER WORKER OPENING NOTES RECEIVED PATIENT IN BED, AWAKE, A/O X2-3, VERBALLY RESPONSIVE, IV SITE ON RIGHT HAND G#22 SALINE LOCK, RIGHT AC G#18 SALINE LOCK. INTACT AND FLUSHING WELL. NO COMPLAINT OF PAIN, NOT IN DISTRESS NOTED, NO DIFFICULTY BREATHING NOTED, SAFETY MEASURES IN PLACED; BED LOCKED AND IN LOWEST POSITION, CALL LIGHT AND BEDSIDE TABLE WITHIN REACH.
[2023-01-18] MEDS: ATORVASTATIN 40 MG TABLET PO SCH (21:22)
[2023-01-18] MEDS: ENOXAPARIN SODIUM 40 MG/0.4 ML DISP.SYRIN SQ SCH (21:23)
--- NOTE | 2023-01-18 22:14 | NUR ---
RN NOTES PATIENT REFUSED BLOOD SUGAR CHECK WAS OFFERED 3 TIMES.
[2023-01-19] VITALS: BP 133/71
[2023-01-19 04:00] VITALS: BP 131/66
[2023-01-19] MEDS: PIPERACILLIN /TAZOBACTAM 3.375 G in IV D5W 50 ML IV SCH ×4 (05:02→23:50)
[2023-01-19 06:03] LABS: BASOPHILS % (AUTO) 0.1 % (0.0-2.0); EOSINOPHILS % (AUTO) 0.3 % (0.0-6.0); HEMATOCRIT 30 % (39-51); LYMPHOCYTES % (AUTO) 7.8 % (20.0-44.0); MEAN CORPUSCULAR HGB CONC 33 g/dl (31.0-36.0); MEAN CORPUSCULAR VOLUME 92 fL (80-96); MONOCYTES # (AUTO) 1.2 K/uL (0.1-1.30); MONOCYTES % (AUTO) 8.9 % (2.0-12.0); NEUTROPHILS % (AUTO) 82.9 % (43.0-81.0); PLATELET COUNT (AUTO) 374 K/uL (150-450); RED BLOOD CELL COUNT(AUTO) 3.24 MIL/uL (4.5-6.0); WHITE BLOOD COUNT (AUTO) 13.3 K/uL (4.3-11.0)
[2023-01-19 06:06] LABS: CALCIUM, SERUM 7.8 mg/dL (8.5-10.1); CREATININE 0.9 mg/dL (0.6-1.3); POTASSIUM 3.8 mmol/L (3.5-5.1)
[2023-01-19 07:00] VITALS: BP 141/79
--- NOTE | 2023-01-19 07:06 | NUR ---
LABORATORY OPERATIONS COORDINATOR CLOSING NOTES PATIENT IN BED, AWAKE, A/O X2-3, WITH EPISODES OF FORGETFULLNESS AND CONFUSION, VERBALLY RESPONSIVE, IV SITE ON RIGHT HAND G#22 SALINE LOCK, RIGHT AC G#18 SALINE LOCK INTACT AND FLUSHING WELL. NO COMPLAINT OF PAIN, NOT IN DISTRESS NOTED, NO DIFFICULTY BREATHING NOTED, ALL DUE MEDICATIONS ARE GIVEN ORDERED. ALL NEEDS ARE MET. SAFETY MEASURES IN PLACED; BED LOCKED AND IN LOWEST POSITION, CALL LIGHT AND BEDSIDE TABLE WITHIN REACH. WILL ENDORSE TO NEXT SHIFT FOR CONTINUITY OF CARE.
--- NOTE | 2023-01-19 07:10 | NUR ---
TIN POT OPERATOR OPENING NOTES RECEIVED PATIENT SLEEPING IN BED, A/Ox2, ABLE TO MAKE NEEDS KNOWN. ON ROOM AIR, NO S/S OF RESPIRATORY DISTRESS. ON TELE MONITORING SHOWING SINUS TACH HR 102. NO S/S OF CARDIAC DISTRESS OR DISCOMFORT. IV ACCESS R HAND #22G S/L AND R #AC #18 S/L. INTACT AND PATENT. PATIENT USES URINAL. SKIN ISSUES: R LEG, R ELBOW, R KNEE SCAB, SACRAL REDNESS, AND L ARM BRUISE. SAFETY MEASURES IN PLACE: BED LOCKED AND IN LOWEST POSITION, HOB ELEVATED, SIDE RAILS UPx2, CALL LIGHT WITHIN REACH. WILL CONTINUE TO MONITOR.
[2023-01-19] MEDS: PANTOPRAZOLE 40 MG TABLET.DR PO SCH (08:08)
[2023-01-19] MEDS: BLOOD SUGAR DIAGNOSTIC 1 EACH STRIP IN SCH ×4 (08:08→21:36)
[2023-01-19] MEDS: MECLIZINE HCL 12.5 MG TABLET PO SCH (08:08)
[2023-01-19] MEDS: ASPIRIN 81 MG TAB.CHEW PO SCH (08:08)
[2023-01-19 11:15] VITALS: BP 126/68
[2023-01-19 15:18] VITALS: BP 128/75
--- NOTE | 2023-01-19 18:46 | NUR ---
FLUE CLEANER CLOSING NOTES PATIENT RESTING IN BED, A/Ox2-3, ABLE TO MAKE NEEDS KNOWN. STABLE ON ROOM AIR, NO S/S OF RESPIRATORY DISTRESS. ON TELE MONITORING SHOWING SINUS TACH HR 106. NO S/S OF CARDIAC DISTRESS OR DISCOMFORT. IV ACCESS R #AC #18 S/L. INTACT AND PATENT. PATIENT USES URINAL. SKIN ISSUES: R LEG, R ELBOW, R KNEE SCAB, SACRAL REDNESS, AND L ARM BRUISE. SAFETY MEASURES MAINTAINED: BED LOCKED AND IN LOWEST POSITION, HOB ELEVATED, SIDE RAILS UPx2, CALL LIGHT WITHIN REACH. WILL ENDORSE TO NEXT SHIFT ANY HAYDEN.
--- NOTE | 2023-01-19 19:50 | NUR ---
ORACLE BUSINESS ANALYST OPENING NOTES RECEIVED PATIENT IN BED, AWAKE AND CONFUSED, A/O X 2. ON MODERATE HIGH BACK REST POSITION. UNABLE TO VERBALIZED NEEDS CLEARLY. USES DIAPER AND URINAL AT BEDSIDE. FOR NPO AT 12MIDNIGHT EXCEPT MEDICATIONS FOR YVONNE ON 01/20/2023. WITH CONSENT SIGNED, NO PAIN OR DIFFICULTY OF BREATHING NOTED AT THIS TIME. WITH IV ACCESS AT RIGHT AC #18G, PATENT AND INTACT.PATIENT CAN AMBULATE WITH ASSISTANCE. KEPT SIDE RAILS UP X 3 ALL THE TIME. KEPT BED ON LOWER LOCKED POSITION. BED CALL LIGHT WITHIN AT REACH. WILL CONTINUE TO MONITOR FOR HAYDEN
[2023-01-19 20:00] VITALS: BP_SYST 135; BP_SYST 138; BP_DIAS 75
[2023-01-19] MEDS: ATORVASTATIN 40 MG TABLET PO SCH (21:36)
[2023-01-20] VITALS (7 sets, daily range): BP systolic 109–140; BP diastolic 70–78
[2023-01-20] MEDS: PIPERACILLIN /TAZOBACTAM 3.375 G in IV D5W 50 ML IV SCH ×3 (05:40→17:26)
--- NOTE | 2023-01-20 06:10 | NUR ---
SHIFT LAB TECHNICIAN NOTES NOTED PATIENT IV LINE OUT. INSERTED NEW IV ACCESS AT LEFT HAND #20G PATENT AND INTACT. WILL CONTINUE TO MONITOR,
[2023-01-20 06:17] LABS: BASOPHILS % (AUTO) 0.2 % (0.0-2.0); EOSINOPHILS % (AUTO) 0.3 % (0.0-6.0); HEMATOCRIT 28 % (39-51); HEMOGLOBIN 9.5 g/dL (13.5-17.5); LYMPHOCYTES # (AUTO) 0.8 K/uL (0.8-4.8); LYMPHOCYTES % (AUTO) 6.5 % (20.0-44.0); MEAN CORPUSCULAR HGB CONC 34 g/dl (31.0-36.0); MEAN CORPUSCULAR VOLUME 91 fL (80-96); MONOCYTES # (AUTO) 1.3 K/uL (0.1-1.30); MONOCYTES % (AUTO) 10.2 % (2.0-12.0); NEUTROPHILS # (AUTO) 10.2 K/uL (1.8-8.9); NEUTROPHILS % (AUTO) 82.8 % (43.0-81.0); PLATELET COUNT (AUTO) 400 K/uL (150-450); RED BLOOD CELL COUNT(AUTO) 3.07 MIL/uL (4.5-6.0); WHITE BLOOD COUNT (AUTO) 12.3 K/uL (4.3-11.0)
[2023-01-20 06:35] LABS: CREATININE 0.9 mg/dL (0.6-1.3); POTASSIUM 3.6 mmol/L (3.5-5.1)
--- NOTE | 2023-01-20 06:53 | NUR ---
PROJECT/PRODUCTION MANAGER IMAGING CLOSING NOTES PATIENT IS FOR YVONNE TODAY AT 0730 WITH CONSENTS SIGNED AND VERIFIED. ON MODERATE HIGH BACK REST POSITION. NO SIGNS OF PAIN OR CHEST PAIN NOTED AT THIS TIME. NO PROGRESSION OF NEUROLOGICAL ASSESSMENT NOTED. WITH IV ACCESS AT LEFT HAND #20G SL PATENT AND INTACT. MAINTAINED ON NPO STATUS SINCE MIDNIGHT. ENDORSED TO ICU FOR YVONNE PREPARATION UNDER NURSE MENDOZA. TRANSFER TO ICU STABLE.SAFETY PRECAUTIONS MAINTAINED. ALL DUE IV ANTIBIOTICS GIVEN. KEPT BED ON LOWER LOCKED POSITION, KEPT SIDE RAILS UP X 4 ALL THE TIME.PM CARE RENDERED. ALL NEEDS ATTENDED KEPT PATIENT WARM AND COMFORTABLE. WILL ENDORSED TO ICU FOR HAYDEN.
--- NOTE | 2023-01-20 07:30 | NUR ---
OPENING NOTE: REPORT RECEIVED FROM KELLY SIMONS. PT IN ICU FOR YVONNE AT 0730 THEN WILL TRANSFER BACK TO 3 TO THE SAME ROOM.
[2023-01-20] MEDS ORDERED: ANESTHESIA TRAY IN PYXIS 1 EA TRAY MC ONE (07:31)
[2023-01-20] MEDS: BLOOD SUGAR DIAGNOSTIC 1 EACH STRIP IN SCH ×4 (08:12→21:40)
--- NOTE | 2023-01-20 08:18 | NUR ---
YVONNE COMPLETED, PER DR BENNETT NO FINDINGS. BUBBLE STUDY WAS DONE DURING YVONNE. PT STABLE, AWAKE, ROOM AIR. WILL BE RETURNED BACK TO 3W ROOM, BEDSIDE REPORT TO BE GIVEN.
--- NOTE | 2023-01-20 08:20 | NUR ---
PT TRANSPORTED TO ROOM 307-1 VIA BED USING ACLS PROTOCOL. BEDSIDE REPORT GIVEN TO LIDIA CRUZ.
--- NOTE | 2023-01-20 08:40 | NUR ---
RN NOTES RECEIVED PATIENT FROM ICU, BEDSIDE REPORT GIVEN. PATIENT A/Ox2, EPISODES OF CONFUSION. IV ACCESS L HAND #20G S/L INTACT AND PATENT. ATTACHED TO TELE MONITORING SHOWING SINUS RHYTHM HR 98. NO S/S OF CHEST PAIN OR DISCOMFORT. SAFETY MEASURES IN PLACE: BED LOCKED AND IN LOWEST POSITION, HOB ELEVATED, SIDE RAILS UPx3, CALL LIGHT WITHIN REACH. WILL CONTINUE TO MONITOR.
[2023-01-20] MEDS: CLOPIDOGREL BISULFATE 75 MG TABLET PO SCH (09:21)
[2023-01-20] MEDS: PANTOPRAZOLE 40 MG TABLET.DR PO SCH (09:21)
[2023-01-20] MEDS: MECLIZINE HCL 12.5 MG TABLET PO SCH (09:21)
[2023-01-20] MEDS: ASPIRIN 81 MG TAB.CHEW PO SCH (09:22)
--- NOTE | 2023-01-20 12:15 | NUR ---
RN NOTES ATTEMPTED TO DO ACCUCHECK FOR PATIENT. TRIED THREE TIMES, PATIENT CONTINUED TO REFUSE. WILL CONTINUE TO MONITOR.
--- NOTE | 2023-01-20 17:45 | NUR ---
RN NOTES PATIENT REFUSED EVENING ACCUCHECK. ATTEMPTED TO EXPLAIN RISKS AND BENEFITS BUT PATIENT BEGAN TO BECOME AGITATED. WILL CONTINUE TO MONITOR.
--- NOTE | 2023-01-20 18:42 | NUR ---
ENVIRONMENTAL AUDITOR CLOSING NOTES PATIENT SLEEPING IN BED, A/Ox2, EPISODES OF CONFUSION, [place]ESE SPEAKING. STABLE ON ROOM AIR. NO S/S OF RESPIRATORY DISTRESS. IV ACCESS L HAND #22G SL. INTACT AND PATENT. ON TELE MONITORING SHOWING SINUS RHYTHM HR 63. NO C/O OF CARDIAC DISTRESS OR DISCOMFORT. PATIENT ON BED REST, AMBULATE WITH ASSIST. INCONTINENT. SKIN INTACT. SAFETY MEASURES IN PLACE: BED LOCKED AND IN LOWEST POSITION, HOB ELEVATED, SIDE RAILS UPx2, CALL LIGHT WITHIN REACH. WILL ENDORSE TO NEXT SHIFT ANY HAYDEN.
--- NOTE | 2023-01-20 19:45 | NUR ---
DYE JIG OPERATOR OPENING NOTES RECEIVED PATIENT IN BED AWAKE. A/O X 2, CONFUSED. NO S/S PAIN NOTED AT THIS TIME. ON RA, BREATHING EVEN AND UNLABORED, NO DISTRESS OR SBO NOTED. IV ACCESS L HAND, INTACT AND PATENT, FLUSHING WELL. ON CARDIAC EXTERNAL MONITOR W/ CURRENT READING OR SR @ 80, NO CARDIAC DISTRESS NOTED. SAFETY MEASURES GIVEN WITH BED ON LOWEST AND LOCK POSITION. SIDE RAILS UP X2. CALL LIGHT WITHIN REACH. WILL CONTINUE TO MONITOR PATIENT.
[2023-01-20] MEDS: ATORVASTATIN 40 MG TABLET PO SCH (21:40)
[2023-01-21] MEDS: PIPERACILLIN /TAZOBACTAM 3.375 G in IV D5W 50 ML IV SCH ×4 (00:29→17:30)
--- NOTE | 2023-01-21 07:30 | NUR ---
WATER USE INSPECTOR NOTES PT IN BED, AWAKE, ALERT AND VERBALLY RESPONSIVE, NO COMPLAINT OF PAIN OR ANY DISCOMFORT, CALL LIGHT WITHIN REACH, KEPT COMFORTABLE IN BED.
--- NOTE | 2023-01-21 07:58 | NUR ---
CLASSROOM ASSISTANT CLOSING NOTES PATIENT IN BED AWAKE. A/O X 2, CONFUSED. NO S/S PAIN NOTED AT THIS TIME. ON RA, BREATHING EVEN AND UNLABORED, NO DISTRESS OR SBO NOTED. IV ACCESS L HAND, INTACT AND PATENT, FLUSHING WELL. ON CARDIAC EXTERNAL MONITOR W/ CURRENT READING OR SR @ 90, NO CARDIAC DISTRESS NOTED. SAFETY MEASURES GIVEN WITH BED ON LOWEST AND LOCK POSITION. ALL DUE IV AND PO MEDS GIVEN. SIDE RAILS UP X2. CALL LIGHT WITHIN REACH. WILL ENDORSE TO THE NEXT SHIFT.
[2023-01-21 08:00] VITALS: BP 112/57
[2023-01-21] MEDS: BLOOD SUGAR DIAGNOSTIC 1 EACH STRIP IN SCH ×4 (08:15→22:31)
[2023-01-21] MEDS: PANTOPRAZOLE 40 MG TABLET.DR PO SCH (08:20)
[2023-01-21] MEDS: MECLIZINE HCL 12.5 MG TABLET PO SCH (08:20)
[2023-01-21] MEDS: CLOPIDOGREL BISULFATE 75 MG TABLET PO SCH (08:20)
[2023-01-21] MEDS: ASPIRIN 81 MG TAB.CHEW PO SCH (08:20)
[2023-01-21 12:00] VITALS: BP 115/68
[2023-01-21] MEDS ORDERED: ASPI-1169 PO (13:33)
[2023-01-21] MEDS ORDERED: AMOX-430 PO (13:33)
[2023-01-21] MEDS ORDERED: ATOR40TA PO (13:33)
[2023-01-21] MEDS ORDERED: PANT40TA49 PO (13:33)
[2023-01-21] MEDS ORDERED: ACET325T53 PO (13:33)
[2023-01-21] MEDS ORDERED: CLOP75TA15 PO (13:33)
[2023-01-21 16:00] VITALS: BP 134/77
--- NOTE | 2023-01-21 18:12 | NUR ---
RN MS NOTES PT IN BED, AWAKE, ALERT AND VERBALLY RESPONSIVE, WITH PERIODS OF CONFUSION, ATE DINNER, SEEN BY DR. EAGLE TODAY, DUE MEDS GIVEN ORDERED, D/C PLAN TOMORROW TO SNF, PM CARE PROVIDED.
--- NOTE | 2023-01-21 19:49 | NUR ---
MS RN OPENING NOTES RECEIVED PATIENT IN BED RESTING, A/OX2-3 WITH EPISODES OF CONFUSION, PATIENT HAVE IV ACCESS ON RIGHT HAND G#22 SALINE LOCK, FLUSHING WELL. PATIENT IS NOT IN PAIN AT THIS TIME. NO SOB, NOT IN DISTRESS NOTED. SAFETY MEASURES IN PLACED; BED LOCKED AND IN LOWEST POSITION, CALL LIGHT AND SIDE TABLE WITHIN PATIENTS REACH.
[2023-01-21 20:00] VITALS: BP 124/70
[2023-01-21] MEDS: ATORVASTATIN 40 MG TABLET PO SCH (22:14)
[2023-01-22] MEDS: PIPERACILLIN /TAZOBACTAM 3.375 G in IV D5W 50 ML IV SCH ×2 (01:38→05:26)
[2023-01-22] MEDS: BLOOD SUGAR DIAGNOSTIC 1 EACH STRIP IN SCH (06:52)
--- NOTE | 2023-01-22 07:04 | NUR ---
RN NOTES CLOSING NOTES PATIENT IN BED RESTING, A/OX2-3 WITH EPISODES OF CONFUSION, PATIENT HAVE IV ACCESS ON RIGHT HAND G#22 SALINE LOCK, FLUSHING WELL. PATIENT IS NOT IN PAIN AT THIS TIME. NO SOB, NOT IN DISTRESS NOTED. ALL DUE MEDICATIONS GIVEN ALL NEEDS ARE MET. SAFETY MEASURES IN PLACED; BED LOCKED AND IN LOWEST POSITION, CALL LIGHT AND SIDE TABLE WITHIN PATIENTS REACH. WILL ENDORSE FOR CONTINUITY OF CARE.
--- NOTE | 2023-01-22 07:10 | NUR ---
RN OPENING NOTE RECEIVED PATIENT IN BED RESTING, A/OX2-3 WITH EPISODES OF CONFUSION, PATIENT HAVE IV ACCESS ON RIGHT HAND G#22 SALINE LOCK, FLUSHING WELL. PATIENT IS NOT IN PAIN AT THIS TIME. NO SOB, NOT IN DISTRESS NOTED. SAFETY MEASURES IN PLACED; BED LOCKED AND IN LOWEST POSITION, CALL LIGHT AND SIDE TABLE WITHIN PATIENTS REACH.
[2023-01-22] MEDS: PANTOPRAZOLE 40 MG TABLET.DR PO SCH (07:40)
[2023-01-22 08:00] VITALS: BP 147/71
[2023-01-22] MEDS: ASPIRIN 81 MG TAB.CHEW PO SCH (09:18)
[2023-01-22] MEDS: CLOPIDOGREL BISULFATE 75 MG TABLET PO SCH (09:18)
[2023-01-22] MEDS: MECLIZINE HCL 12.5 MG TABLET PO SCH (09:18)
--- NOTE | 2023-01-22 11:50 | NUR ---
PATIENT D/C TO [facility], REPORT GIVEN TO ROSIBEL SIMONS OVER THE PHONE. PT TAKEN IN STABLE CONDITION VIA GURNEY BY AMBULANCE
== END 2023-01-22 12:30 | DRG 45 ==
LOC: ER 18:49 → TELE 22:12 → MED 01-14 12:44 → TELE 01-17 08:32 → ICU 01-20 06:46 → TELE 01-20 08:42 → MED 01-21 10:18
PROVIDERS: ADMIT Registered Nurse; ATTEND Nurse Practitioner Acute Care
DX: I63.441 Cerebral infarction due to embolism of right cerebellar artery (principal); J69.0 Pneumonitis due to inhalation of food and vomit; G92.8 Other toxic encephalopathy; J15.9 Unspecified bacterial pneumonia; E87.1 Hypo-osmolality and hyponatremia; E88.09 Other disorders of plasma-protein metabolism, not elsewhere classified; R29.705 NIHSS score 5; K80.20 Calculus of gallbladder without cholecystitis without obstruction; Z20.822 Contact with and (suspected) exposure to COVID-19; K86.1 Other chronic pancreatitis; E11.9 Type 2 diabetes mellitus without complications; F10.10 Alcohol abuse, uncomplicated; Y90.0 Blood alcohol level of less than 20 mg/100 ml; I10 Essential (primary) hypertension; Z79.899 Other long term (current) drug therapy; I63.412 Cerebral infarction due to embolism of left middle cerebral artery; D64.9 Anemia, unspecified; E05.90 Thyrotoxicosis, unspecified without thyrotoxic crisis or storm; J98.11 Atelectasis; Z86.73 Personal history of transient ischemic attack (TIA), and cerebral infarction without residual deficits
CPT/HCPCS: 36415; 70450-TC; 70496-TC; 70498-TC; 70551-TC; 71045-TC; 80048-TC; 80053-TC; 80061-TC; 80076-TC; 81001; 82140-TC; 82962-TC; 83690-TC; 83735-TC; 84100-TC; 84439-TC; 84443-TC; 85025-TC; 85730-TC; 87081-TC; 92526; 92611-TC; 93307-TC; 93312-TC; 93880-TC; 97110-TC; 97112-TC; 97116-TC; 97530-TC; 97535-TC; A4223; C9113; C9803; G0378; G0480; J0696; J1650; J2405; J2543; J7030; J7040; J7050; J7060; J8597; Q9967

== ENCOUNTER 2024-11-22 18:05 | Inpatient (IN) | payer MEDICAID ==
[~2024-11-22] VITALS: Ht 160 cm; Wt 49.9 kg
[~2024-11-22 18:05] MED LIST changes: +ACET325T53 PO; +AMOX-430 PO; +ASPI-1169 PO; +ATOR40TA PO; +CLOP75TA15 PO; -MECL-182 PO; +PANT40TA49 PO
[2024-11-22 18:46] LABS: BASOPHILS % (AUTO) 0.3 % (0.0-2.0); HEMATOCRIT 25 % (39-51); HEMOGLOBIN 8.1 g/dL (13.5-17.5); LYMPHOCYTES # (AUTO) 1.1 K/uL (0.8-4.8); LYMPHOCYTES % (AUTO) 7.4 % (20.0-44.0); MEAN CORPUSCULAR HEMOGLOBIN 29 PG (26.0-33.0); MEAN CORPUSCULAR HGB CONC 33 g/dl (31.0-36.0); MEAN CORPUSCULAR VOLUME 89 fL (80-96); MONOCYTES # (AUTO) 0.7 K/uL (0.1-1.30); MONOCYTES % (AUTO) 4.3 % (2.0-12.0); NEUTROPHILS # (AUTO) 13.5 K/uL (1.8-8.9); PLATELET COUNT (AUTO) 386 K/uL (150-450); RED BLOOD CELL COUNT(AUTO) 2.77 MIL/uL (4.5-6.0); WHITE BLOOD COUNT (AUTO) 15.4 K/uL (4.3-11.0)
[2024-11-22 18:50] LABS: CALCIUM, SERUM 9.7 mg/dL (8.5-10.1); CARBON DIOXIDE 28 mmol/L (21-32); CHLORIDE 100 mmol/L (98-107); CREATININE 1.1 mg/dL (0.6-1.3); GLUCOSE 145 mg/dL (74-106); POTASSIUM 4.7 mmol/L (3.5-5.1); SODIUM SERUM 134 mmol/L (136-145); UREA NITROGEN, BLOOD 48 mg/dL (7-18)
[2024-11-22 18:51] LABS: INR 1.17 (0.91-1.10); PARTIAL THROMBOPLASTIN TIME 28.8 SEC (24.3-34.3); PROTHROMBIN TIME 11.9 SECS (9.2-11.1)
[2024-11-22 18:55] LABS: ALANINE AMINOTRANSFERASE 42 U/L (12-78); ALBUMIN 1.8 g/dL (3.4-5.0); ALCOHOL, BLOOD < 3 mg/dL (0-10); ALKALINE PHOSPHATASE 286 U/L (46-116); ASPARTATE AMINOTRANSFERASE 59 U/L (15-37); BILIRUBIN,DIRECT 0.5 mg/dL (0.0-0.2); BILIRUBIN,TOTAL 0.8 mg/dL (0.2-1.0); TOTAL PROTEIN, SERUM 8.4 g/dL (6.4-8.2)
[2024-11-22 18:57] LABS: LACTIC ACID 1.9 mmol/L (0.4-2.0)
[2024-11-22] MEDS: IV NS 0.9% 1,000 ML BAG IV ONE (19:19)
[2024-11-22] MEDS: CEFEPIME 1 GM in IV D5W 50 ML IV ONE (19:30)
[2024-11-22 20:06] LABS: APPEARANCE,URINE Clear (CLEAR); BILIRUBIN,URINE Negative (NEGATIVE); BLOOD, URINE Negative Ery/uL (NEGATIVE); COLOR,URINE YELLOW (YELLOW); KETONES,URINE Negative (NEGATIVE); LEUKOCYTE ESTERASE ,URINE Negative (NEGATIVE); NITRITE, URINE Negative (NEGATIVE); PH,URINE 5.5 (5.0-8.0); PROTEIN,URINE Negative (NEGATIVE); UGLUCOSE Negative (NEGATIVE)
[2024-11-22 20:14] LABS: AMPHETAMINE, URINE NEGATIVE (NEGATIVE); BARBITURATE, URINE NEGATIVE (NEGATIVE); BENZODIAZEPINE, URINE NEGATIVE (NEGATIVE); CANNABINOID, URINE NEGATIVE (NEGATIVE); COCCAINE, URINE NEGATIVE (NEGATIVE); OPIATE, URINE NEGATIVE (NEGATIVE); PHENCYCLIDINE SCREEN,URINE NEGATIVE (NEGATIVE)
[2024-11-22 20:18] LABS: ADD URINE CULTURE NO; BACTERIA,URINE None seen /HPF (None Seen); RBC,URINE 0-2 /HPF (0-2); SQUAMOUS EPITHELIAL CELL,UR None Seen /HPF (None Seen); WBC,URINE 0-2 /HPF (0-3)
[2024-11-22] MEDS: IV NS 0.9% 1,000 ML IV PRN (23:59)
[2024-11-23] VITALS: BP 151/76; TEMP 97.6; O2SAT 99
[2024-11-23] MEDS: QUETIAPINE FUMARATE 25 MG TABLET PO ONE (00:02)
[2024-11-23] MEDS: ENOXAPARIN SODIUM 40 MG/0.4 ML DISP.SYRIN SQ SCH (00:02)
[2024-11-23 06:07] LABS: EOSINOPHILS % (AUTO) 0.1 % (0.0-6.0); LYMPHOCYTES # (AUTO) 0.7 K/uL (0.8-4.8); LYMPHOCYTES % (AUTO) 5.3 % (20.0-44.0); MEAN CORPUSCULAR HEMOGLOBIN 30 PG (26.0-33.0); MEAN CORPUSCULAR HGB CONC 34 g/dl (31.0-36.0); MEAN CORPUSCULAR VOLUME 88 fL (80-96); MONOCYTES # (AUTO) 0.9 K/uL (0.1-1.30); MONOCYTES % (AUTO) 7.2 % (2.0-12.0); NEUTROPHILS # (AUTO) 10.7 K/uL (1.8-8.9); NEUTROPHILS % (AUTO) 87.4 % (43.0-81.0); PLATELET COUNT (AUTO) 207 K/uL (150-450); RED BLOOD CELL COUNT(AUTO) 2.16 MIL/uL (4.5-6.0); RED CELL DISTRIBUTION WIDTH 14.2 % (11.5-15.0); WHITE BLOOD COUNT (AUTO) 12.3 K/uL (4.3-11.0)
[2024-11-23 06:35] LABS: HEMATOCRIT 19 % (39-51); HEMOGLOBIN 6.4 g/dL (13.5-17.5)
[2024-11-23 06:50] LABS: CALCIUM, SERUM 8.3 mg/dL (8.5-10.1); CREATININE 0.8 mg/dL (0.6-1.3); MAGNESIUM 2.5 mg/dL (1.8-2.4); POTASSIUM 4.3 mmol/L (3.5-5.1)
[2024-11-23 08:00] VITALS: BP 148/78; TEMP 98.1; O2SAT 96
[2024-11-23 08:53] LABS: LYMPHOCYTES # (AUTO) 0.9 K/uL (0.8-4.8); LYMPHOCYTES % (AUTO) 6.9 % (20.0-44.0); MEAN CORPUSCULAR HEMOGLOBIN 30 PG (26.0-33.0); MEAN CORPUSCULAR HGB CONC 34 g/dl (31.0-36.0); MEAN CORPUSCULAR VOLUME 88 fL (80-96); MONOCYTES % (AUTO) 7.2 % (2.0-12.0); NEUTROPHILS # (AUTO) 11.6 K/uL (1.8-8.9); NEUTROPHILS % (AUTO) 85.9 % (43.0-81.0); PLATELET COUNT (AUTO) 207 K/uL (150-450); RED BLOOD CELL COUNT(AUTO) 2.15 MIL/uL (4.5-6.0); RED CELL DISTRIBUTION WIDTH 13.9 % (11.5-15.0); WHITE BLOOD COUNT (AUTO) 13.5 K/uL (4.3-11.0)
[2024-11-23 08:57] LABS: HEMATOCRIT 19 % (39-51); HEMOGLOBIN 6.4 g/dL (13.5-17.5)
[2024-11-23] MEDS: PANTOPRAZOLE 40 MG VIAL IV SCH (09:31)
[2024-11-23 09:55] LABS: LYMPHOCYTES % (MANUAL) 6 % (16-48); MONOCYTES % (MANUAL) 2 % (0-11.0); NEUTROPHILS % (MANUAL) 92 (42-76)
[2024-11-23 09:56] LABS: ANISOCYTOSIS 1+; PLATELET ESTIMATE ADEQUATE
[2024-11-23] MEDS: IV NS 0.9% 1,000 ML IV SCH (10:42)
[2024-11-23] MEDS: CEFEPIME 2 GM in IV D5W 100 ML IV SCH (11:41)
[2024-11-23] MEDS: VANCOMYCIN HCL 1.25 GM in IV D5W 250 ML IV ONE (12:06)
[2024-11-23 12:46] LABS: ANISOCYTOSIS 1+; PLATELET ESTIMATE ADEQUATE
[2024-11-23 15:57] VITALS: BP 157/70; TEMP 98.2; O2SAT 99
[2024-11-23 20:00] VITALS: BP 161/79; TEMP 98.1; O2SAT 98
[2024-11-23 21:04] LABS: HEMOGLOBIN 7.9 g/dL (13.5-17.5)
[2024-11-24] VITALS: BP_SYST 152; BP_SYST 165; BP_DIAS 75; TEMP 97.5; O2SAT 98
[2024-11-24] MEDS: VANCOMYCIN 1 GM in IV D5W 250ml IV SCH (00:23)
[2024-11-24 04:00] VITALS: BP 154/96; TEMP 98.4; O2SAT 99
[2024-11-24 05:00] VITALS: BP 154/96; TEMP 98.4; O2SAT 99
[2024-11-24 07:00] VITALS: BP 162/75; TEMP 98.1; O2SAT 99
[2024-11-24 07:01] LABS: HEMATOCRIT 23 % (39-51); HEMOGLOBIN 7.7 g/dL (13.5-17.5); LYMPHOCYTES # (AUTO) 0.7 K/uL (0.8-4.8); LYMPHOCYTES % (AUTO) 4.6 % (20.0-44.0); MEAN CORPUSCULAR HEMOGLOBIN 30 PG (26.0-33.0); MEAN CORPUSCULAR HGB CONC 34 g/dl (31.0-36.0); MEAN CORPUSCULAR VOLUME 89 fL (80-96); MONOCYTES # (AUTO) 1.1 K/uL (0.1-1.30); MONOCYTES % (AUTO) 6.6 % (2.0-12.0); NEUTROPHILS # (AUTO) 14.5 K/uL (1.8-8.9); NEUTROPHILS % (AUTO) 88.8 % (43.0-81.0); PLATELET COUNT (AUTO) 156 K/uL (150-450); RED BLOOD CELL COUNT(AUTO) 2.55 MIL/uL (4.5-6.0); RED CELL DISTRIBUTION WIDTH 14.7 % (11.5-15.0); WHITE BLOOD COUNT (AUTO) 16.3 K/uL (4.3-11.0)
[2024-11-24 07:11] LABS: CALCIUM, SERUM 8.3 mg/dL (8.5-10.1); CREATININE 0.7 mg/dL (0.6-1.3); MAGNESIUM 2.2 mg/dL (1.8-2.4); PHOSPHORUS 3.2 mg/dL (2.5-4.9); POTASSIUM 3.5 mmol/L (3.5-5.1)
[2024-11-24 07:13] LABS: HEMOGLOBIN 7.7 g/dL (13.5-17.5)
[2024-11-24 14:42] LABS: HEMOGLOBIN 7.3 g/dL (13.5-17.5)
[2024-11-24 16:00] VITALS: BP 154/82; TEMP 97.2; O2SAT 98
[2024-11-24] MEDS: MAGNESIUM CITRATE 296 ML BOTTLE PO ONE (18:24)
[2024-11-24 20:00] VITALS: BP 145/83; TEMP 98.1; O2SAT 100
[2024-11-24 20:54] LABS: HEMOGLOBIN 7.2 g/dL (13.5-17.5)
[2024-11-25] VITALS (9 sets, daily range): BP systolic 151–169; BP diastolic 67–81; TEMP 97.7–98.2; O2SAT 97–99
[2024-11-25 16:04] LABS: HEMOGLOBIN 6.9 g/dL (13.5-17.5)
[2024-11-25 16:15] LABS: CALCIUM, SERUM 8.3 mg/dL (8.5-10.1); CREATININE 0.8 mg/dL (0.6-1.3); POTASSIUM 3.7 mmol/L (3.5-5.1)
[2024-11-26] MEDS: VANCOMYCIN 750 MG in IV D5W 250 ML IV SCH (00:43)
[2024-11-26 01:40] LABS: HEMOGLOBIN 9.4 g/dL (13.5-17.5)
[2024-11-26 04:00] VITALS: BP 152/79; TEMP 98.1; O2SAT 100
[2024-11-26 08:27] VITALS: BP 149/97; TEMP 98.2; O2SAT 97
[2024-11-26] MEDS: THIAMINE HCL 100 MG TABLET PO SCH (10:51)
[2024-11-26 11:34] LABS: BASOPHILS # (AUTO) 0.1 K/uL (0.0-0.2); BASOPHILS % (AUTO) 0.3 % (0.0-2.0); EOSINOPHILS % (AUTO) 0.1 % (0.0-6.0); HEMATOCRIT 26 % (39-51); HEMOGLOBIN 8.8 g/dL (13.5-17.5); LYMPHOCYTES # (AUTO) 0.9 K/uL (0.8-4.8); LYMPHOCYTES % (AUTO) 5.1 % (20.0-44.0); MEAN CORPUSCULAR HEMOGLOBIN 29 PG (26.0-33.0); MEAN CORPUSCULAR HGB CONC 34 g/dl (31.0-36.0); MEAN CORPUSCULAR VOLUME 87 fL (80-96); MONOCYTES # (AUTO) 1.2 K/uL (0.1-1.30); MONOCYTES % (AUTO) 6.6 % (2.0-12.0); NEUTROPHILS % (AUTO) 87.9 % (43.0-81.0); PLATELET COUNT (AUTO) 85 K/uL (150-450); RED CELL DISTRIBUTION WIDTH 14.6 % (11.5-15.0); WHITE BLOOD COUNT (AUTO) 18.2 K/uL (4.3-11.0)
[2024-11-26] MEDS ORDERED: ZOSYN IVPB 2.25 G in IV D5W 50ml IV SCH (12:00)
[2024-11-26 12:02] LABS: CALCIUM, SERUM 8.1 mg/dL (8.5-10.1); CREATININE 0.8 mg/dL (0.6-1.3); POTASSIUM 3.4 mmol/L (3.5-5.1)
[2024-11-26 12:38] LABS: LYMPHOCYTES % (MANUAL) 5 % (16-48); MONOCYTES % (MANUAL) 3 % (0-11.0); NEUTROPHILS % (MANUAL) 92 (42-76); PLATELET ESTIMATE DECREASED
[2024-11-26 12:39] LABS: ANISOCYTOSIS 1+
[2024-11-26 14:49] VITALS: BP 141/74; TEMP 98.1; O2SAT 97
[2024-11-26] MEDS: ZOSYN IVPB 3.375 G in IV D5W 50ml IV SCH (14:49)
[2024-11-26 16:25] VITALS: BP_SYST 130; BP_SYST 144; BP_DIAS 70; BP_DIAS 72; TEMP 97.4; TEMP 98.2; O2SAT 97
[2024-11-26 16:34] LABS: INR 1.31 (0.91-1.10); PARTIAL THROMBOPLASTIN TIME 35.5 SEC (24.3-34.3); PROTHROMBIN TIME 13.6 SECS (9.2-11.1)
[2024-11-26] MEDS: PEG 3350/NA SULF,BICARB,CL/KCL 4,000 ML BOTTLE PO ONE (18:20)
[2024-11-26] MEDS: LACTULOSE 10 G/15 ML UDC (PYXIS) NG STA (19:13)
[2024-11-26] MEDS: POTASSIUM CHLORIDE 20 MEQ POWDER PACKET NG STA (19:14)
[2024-11-26 20:00] VITALS: BP 115/69; TEMP 97.8; O2SAT 96
[2024-11-27] VITALS: BP 149/82; TEMP 97.6; O2SAT 98
[2024-11-27 01:11] LABS: AFP, TUMOR MARKER <1.8 ng/mL (0.0-8.4)
[2024-11-27 04:00] VITALS: BP 156/77; TEMP 97.9; O2SAT 99
[2024-11-27 07:06] LABS: AFP, TUMOR MARKER <1.8 ng/mL (0.0-8.4)
[2024-11-27 07:07] LABS: CALCIUM, SERUM 8.4 mg/dL (8.5-10.1); CREATININE 0.8 mg/dL (0.6-1.3)
[2024-11-27 08:30] VITALS: BP 168/80; TEMP 98.2; O2SAT 96
[2024-11-27] MEDS ORDERED: POTASSIUM CHLORIDE 20 MEQ TAB.PRT.SR PO SCH (11:00)
[2024-11-27] MEDS: POTASSIUM CHLORIDE 20 MEQ POWDER PACKET PO SCH (12:53)
[2024-11-27 13:56] LABS: HIV-1 p24 ANTIGEN NON REACTIVE (NONREACTIVE); HIV-1/2 ANTIBODY NON REACTIVE (NONREACTIVE)
[2024-11-27] MEDS: CLOPIDOGREL BISULFATE 75 MG TABLET PO SCH (14:59)
[2024-11-27] MEDS: ASPIRIN EC 81 MG TABLET.DR PO SCH (14:59)
[2024-11-27 15:54] LABS: EOSINOPHILS % (AUTO) 0.3 % (0.0-6.0); HEMATOCRIT 23 % (39-51); HEMOGLOBIN 7.5 g/dL (13.5-17.5); LYMPHOCYTES # (AUTO) 1.1 K/uL (0.8-4.8); LYMPHOCYTES % (AUTO) 5.9 % (20.0-44.0); MEAN CORPUSCULAR HEMOGLOBIN 29 PG (26.0-33.0); MEAN CORPUSCULAR HGB CONC 33 g/dl (31.0-36.0); MEAN CORPUSCULAR VOLUME 88 fL (80-96); MONOCYTES # (AUTO) 1.7 K/uL (0.1-1.30); MONOCYTES % (AUTO) 8.6 % (2.0-12.0); NEUTROPHILS # (AUTO) 16.5 K/uL (1.8-8.9); NEUTROPHILS % (AUTO) 85.2 % (43.0-81.0); PLATELET COUNT (AUTO) 70 K/uL (150-450); RED BLOOD CELL COUNT(AUTO) 2.57 MIL/uL (4.5-6.0); RED CELL DISTRIBUTION WIDTH 14.7 % (11.5-15.0); WHITE BLOOD COUNT (AUTO) 19.3 K/uL (4.3-11.0)
[2024-11-27 16:00] VITALS: BP 134/71; TEMP 98; O2SAT 99
[2024-11-27] MEDS ORDERED: IV NS 0.9% 250 ML IV ONE (16:23)
[2024-11-27] MEDS ORDERED: CT SWABBABLE VALVE TRANS SET 1 EA INFUS.SET MC ONE (16:23)
[2024-11-27] MEDS ORDERED: IOHEXOL-350 100 ML VIAL IV ONE (16:23)
[2024-11-27 17:12] LABS: RHEUMATOID FACTOR SCREEN NEGATIVE (NEGATIVE)
[2024-11-27 17:50] LABS: FERRITIN 1863 ng/mL (8-388)
[2024-11-27 19:21] LABS: IRON, SERUM 11 ug/dl (50-175); TOTAL IRON BINDING CAPACITY 142 ug/dl (250-450)
[2024-11-27 19:30] LABS: LYMPHOCYTES % (MANUAL) 8 % (16-48); MONOCYTES % (MANUAL) 3 % (0-11.0); NEUTROPHILS % (MANUAL) 89 (42-76); PLATELET ESTIMATE DECREASED
[2024-11-27 19:31] LABS: ANISOCYTOSIS 1+
[2024-11-27 20:00] VITALS: BP 147/77; TEMP 97.7; O2SAT 98
[2024-11-28] VITALS (7 sets, daily range): BP systolic 101–166; BP diastolic 60–86; TEMP 97.9–98.8; O2SAT 98–100
[2024-11-28 07:04] LABS: BASOPHILS % (AUTO) 0.1 % (0.0-2.0); EOSINOPHILS % (AUTO) 0.2 % (0.0-6.0); LYMPHOCYTES # (AUTO) 0.8 K/uL (0.8-4.8); LYMPHOCYTES % (AUTO) 4.8 % (20.0-44.0); MEAN CORPUSCULAR HEMOGLOBIN 30 PG (26.0-33.0); MEAN CORPUSCULAR HGB CONC 34 g/dl (31.0-36.0); MEAN CORPUSCULAR VOLUME 88 fL (80-96); MONOCYTES # (AUTO) 1.3 K/uL (0.1-1.30); MONOCYTES % (AUTO) 7.7 % (2.0-12.0); NEUTROPHILS # (AUTO) 14.5 K/uL (1.8-8.9); NEUTROPHILS % (AUTO) 87.2 % (43.0-81.0); PLATELET COUNT (AUTO) 62 K/uL (150-450); RED BLOOD CELL COUNT(AUTO) 2.28 MIL/uL (4.5-6.0); RED CELL DISTRIBUTION WIDTH 14.8 % (11.5-15.0); WHITE BLOOD COUNT (AUTO) 16.6 K/uL (4.3-11.0)
[2024-11-28 07:09] LABS: FOLIC ACID 3.9 ng/mL (>3.0); HEPATITIS B CORE AB, TOTAL Negative (Negative)
[2024-11-28 07:14] LABS: CREATININE 0.7 mg/dL (0.6-1.3); POTASSIUM 3.7 mmol/L (3.5-5.1)
[2024-11-28 07:36] LABS: HEMATOCRIT 20 % (39-51); HEMOGLOBIN 6.8 g/dL (13.5-17.5)
[2024-11-28 10:48] LABS: LYMPHOCYTES % (MANUAL) 7 % (16-48); MONOCYTES % (MANUAL) 7 % (0-11.0); NEUTROPHILS % (MANUAL) 86 (42-76); PLATELET ESTIMATE DECREASED
[2024-11-28 10:49] LABS: ANISOCYTOSIS 1+
[2024-11-28] MEDS: IV D5/ 0.9% NACL 1,000 ML IV PRN (12:47)
[2024-11-28 13:51] LABS: CHOLESTEROL 32 mg/dL (<200); HDL CHOLESTEROL 13 mg/dL (40-60); LDL 34 mg/dL (0-99); TRIGLYCERIDES 65 mg/dL (30-150)
[2024-11-28] MEDS: diphenhydrAMINE HCL 50 MG/ML VIAL IV ONE (17:33)
[2024-11-28] MEDS: ACETAMINOPHEN 325 MG TABLET PO ONE (17:38)
[2024-11-28] MEDS: ATORVASTATIN 40 MG TABLET PO SCH (22:00)
[2024-11-28 22:53] LABS: D-DIMER 4.28 mg/L(FEU (0.17-0.50); INR 1.15 (0.91-1.10); PARTIAL THROMBOPLASTIN TIME 24.2 SEC (24.3-34.3); PROTHROMBIN TIME 12.1 SECS (9.2-11.1)
[2024-11-29] VITALS (7 sets, daily range): BP systolic 140–176; BP diastolic 77–89; TEMP 97.5–98.4; O2SAT 96–100
[2024-11-29 06:10] LABS: CARBOHYDRATE AG 19-9 4 U/mL (0-35)
[2024-11-29 06:48] LABS: BASOPHILS % (AUTO) 0.1 % (0.0-2.0); EOSINOPHILS % (AUTO) 0.1 % (0.0-6.0); HEMATOCRIT 26 % (39-51); HEMOGLOBIN 8.6 g/dL (13.5-17.5); LYMPHOCYTES # (AUTO) 0.8 K/uL (0.8-4.8); LYMPHOCYTES % (AUTO) 4.6 % (20.0-44.0); MEAN CORPUSCULAR HEMOGLOBIN 29 PG (26.0-33.0); MEAN CORPUSCULAR HGB CONC 33 g/dl (31.0-36.0); MEAN CORPUSCULAR VOLUME 89 fL (80-96); MONOCYTES % (AUTO) 5.7 % (2.0-12.0); NEUTROPHILS # (AUTO) 15.8 K/uL (1.8-8.9); NEUTROPHILS % (AUTO) 89.5 % (43.0-81.0); PLATELET COUNT (AUTO) 76 K/uL (150-450); RED BLOOD CELL COUNT(AUTO) 2.94 MIL/uL (4.5-6.0); WHITE BLOOD COUNT (AUTO) 17.7 K/uL (4.3-11.0)
[2024-11-29 06:55] LABS: CALCIUM, SERUM 8.3 mg/dL (8.5-10.1); CREATININE 0.8 mg/dL (0.6-1.3); POTASSIUM 3.1 mmol/L (3.5-5.1)
[2024-11-29 08:07] LABS: IMMUNOGLOBULIN A, SERUM 255 mg/dL (61-437); IMMUNOGLOBULIN G, SERUM 1621 mg/dL (603-1613); IMMUNOGLOBULIN M, SERUM 92 mg/dL (20-172)
[2024-11-29 09:30] LABS: D-DIMER 6.15 mg/L(FEU (0.17-0.50); INR 1.19 (0.91-1.10); PARTIAL THROMBOPLASTIN TIME 30.3 SEC (24.3-34.3); PROTHROMBIN TIME 12.5 SECS (9.2-11.1)
[2024-11-29] MEDS ORDERED: POTASSIUM CHLORIDE 20 MEQ TAB.PRT.SR PO SCH (09:30)
[2024-11-29] MEDS: POTASSIUM CL. PREMIX PERIPHER. 50 ML IV SCH (09:39)
[2024-11-29 10:07] LABS: FREE KAPPA LT CHAINS SERUM 96.5 mg/L (3.3-19.4); FREE LAMBDA LT CHAIN SERUM 95.8 mg/L (5.7-26.3); KAPPA/LAMBDA RATIO SERUM 1.01 (0.26-1.65)
[2024-11-29 12:06] LABS: *ANA ANTI-CENTROMERE B AB <0.2 AI (0.0-0.9); *ANA ANTI-DNA(DS) AB, QN <1 IU/mL (0-9); *ANA ANTI-JO-1 <0.2 AI (0.0-0.9); *ANA ANTICHROMATIN ANTIBODY <0.2 AI (0.0-0.9); *ANA RNP ANTIBODIES 0.3 AI (0.0-0.9); *ANA SJOGREN'S ANTI-SS-A <0.2 AI (0.0-0.9); *ANA SJOGREN'S ANTI-SS-B <0.2 AI (0.0-0.9); *ANAANTI-SCLERODERMA-70 AB <0.2 AI (0.0-0.9); *ANASMITH AB <0.2 AI (0.0-0.9)
[2024-11-29 13:00] LABS: LYMPHOCYTES % (MANUAL) 4 % (16-48); MONOCYTES % (MANUAL) 4 % (0-11.0); NEUTROPHILS % (MANUAL) 92 (42-76)
[2024-11-29 13:01] LABS: PLATELET ESTIMATE DECREASED
[2024-11-29] MEDS ORDERED: IOHEXOL-300 100 ML VIAL IV ONE (14:53)
[2024-11-29] MEDS ORDERED: CT SWABBABLE VALVE TRANS SET 1 EA INFUS.SET MC ONE (14:53)
[2024-11-29] MEDS ORDERED: IV NS 0.9% 250 ML IV ONE (14:54)
[2024-11-29] MEDS: PANTOPRAZOLE 40 MG TABLET.DR PO SCH (16:29)
[2024-11-30] VITALS: BP 136/88; TEMP 97.7; O2SAT 98
[2024-11-30 04:00] VITALS: BP 148/73; TEMP 97.7; O2SAT 95
[2024-11-30 07:24] LABS: BASOPHILS % (AUTO) 0.1 % (0.0-2.0); EOSINOPHILS % (AUTO) 0.1 % (0.0-6.0); HEMATOCRIT 24 % (39-51); HEMOGLOBIN 7.8 g/dL (13.5-17.5); LYMPHOCYTES # (AUTO) 0.8 K/uL (0.8-4.8); LYMPHOCYTES % (AUTO) 4.1 % (20.0-44.0); MEAN CORPUSCULAR HEMOGLOBIN 30 PG (26.0-33.0); MEAN CORPUSCULAR HGB CONC 33 g/dl (31.0-36.0); MEAN CORPUSCULAR VOLUME 90 fL (80-96); MONOCYTES # (AUTO) 0.9 K/uL (0.1-1.30); MONOCYTES % (AUTO) 4.5 % (2.0-12.0); NEUTROPHILS # (AUTO) 18.4 K/uL (1.8-8.9); NEUTROPHILS % (AUTO) 91.2 % (43.0-81.0); PLATELET COUNT (AUTO) 107 K/uL (150-450); RED BLOOD CELL COUNT(AUTO) 2.62 MIL/uL (4.5-6.0); WHITE BLOOD COUNT (AUTO) 20.1 K/uL (4.3-11.0)
[2024-11-30 08:00] VITALS: BP 130/81; TEMP 97.9; O2SAT 96
[2024-11-30] MEDS: IV D5W 1,000 ML IV PRN (11:37)
[2024-11-30] MEDS: FLUCONAZOLE IN NS 400 MG in PREMIX 1 EA IV SCH (12:29)
[2024-11-30 13:24] LABS: CALCIUM, SERUM 7.7 mg/dL (8.5-10.1); CREATININE 0.9 mg/dL (0.6-1.3); POTASSIUM 3.1 mmol/L (3.5-5.1)
[2024-11-30] MEDS: POTASSIUM CL. PREMIX PERIPHER. 50 ML IV SCH (18:49)
[2024-11-30 19:52] VITALS: BP 159/77; TEMP 98.2; O2SAT 97
[2024-11-30 20:00] VITALS: BP 159/77; TEMP 98.2; O2SAT 97
[2024-12-01] VITALS: BP 140/69; TEMP 99; O2SAT 97
[2024-12-01 04:00] VITALS: BP 139/74; TEMP 99; O2SAT 97
[2024-12-01] MEDS: IV D5 LR 1,000 ML IV PRN (07:21)
[2024-12-01 07:48] LABS: CALCIUM, SERUM 7.9 mg/dL (8.5-10.1); MAGNESIUM 1.9 mg/dL (1.8-2.4); POTASSIUM 3.8 mmol/L (3.5-5.1)
[2024-12-01 08:13] LABS: BASOPHILS % (AUTO) 0.1 % (0.0-2.0); EOSINOPHILS % (AUTO) 0.2 % (0.0-6.0); HEMATOCRIT 29 % (39-51); HEMOGLOBIN 9.5 g/dL (13.5-17.5); LYMPHOCYTES # (AUTO) 0.8 K/uL (0.8-4.8); MEAN CORPUSCULAR HEMOGLOBIN 30 PG (26.0-33.0); MEAN CORPUSCULAR HGB CONC 33 g/dl (31.0-36.0); MEAN CORPUSCULAR VOLUME 91 fL (80-96); MONOCYTES # (AUTO) 0.3 K/uL (0.1-1.30); MONOCYTES % (AUTO) 2.3 % (2.0-12.0); NEUTROPHILS # (AUTO) 9.9 K/uL (1.8-8.9); NEUTROPHILS % (AUTO) 90.4 % (43.0-81.0); PLATELET COUNT (AUTO) 226 K/uL (150-450); RED BLOOD CELL COUNT(AUTO) 3.18 MIL/uL (4.5-6.0); RED CELL DISTRIBUTION WIDTH 15.7 % (11.5-15.0); WHITE BLOOD COUNT (AUTO) 10.9 K/uL (4.3-11.0)
[2024-12-01 08:39] VITALS: BP 165/84; TEMP 97.9; O2SAT 96
[2024-12-01 12:00] VITALS: BP 115/73; TEMP 97.5; O2SAT 100
[2024-12-01 16:10] VITALS: BP 120/78; TEMP 97.9; O2SAT 97
[2024-12-01 20:00] VITALS: BP 134/74; TEMP 98.4; O2SAT 98
[2024-12-02] VITALS (7 sets, daily range): BP systolic 102–135; BP diastolic 63–86; TEMP 97.5–99.1; O2SAT 96–99
[2024-12-02] MEDS ORDERED: NALOXONE PREFILLED SYRINGE 2 MG/2 ML SYRINGE IV PRN (14:00)
[2024-12-02] MEDS ORDERED: FLUMAZENIL 0.5 MG VIAL IV PRN (14:00)
[2024-12-02] MEDS ORDERED: MIDAZOLAM HCL 2 MG/2ML VIAL IV PRN (14:00)
[2024-12-02] MEDS ORDERED: FENTANYL PF 250MCG/5ML AMPUL IV PRN (14:00)
[2024-12-02] MEDS ORDERED: FENTANYL PF 100MCG/2ML AMPUL ONE (14:03)
[2024-12-02] MEDS ORDERED: MIDAZOLAM HCL 2 MG/2ML VIAL ONE (14:03)
[2024-12-02 16:50] LABS: BASOPHILS % (AUTO) 0.1 % (0.0-2.0); EOSINOPHILS % (AUTO) 0.2 % (0.0-6.0); HEMATOCRIT 25 % (39-51); HEMOGLOBIN 7.9 g/dL (13.5-17.5); LYMPHOCYTES # (AUTO) 0.6 K/uL (0.8-4.8); LYMPHOCYTES % (AUTO) 3.6 % (20.0-44.0); MEAN CORPUSCULAR HEMOGLOBIN 30 PG (26.0-33.0); MEAN CORPUSCULAR HGB CONC 32 g/dl (31.0-36.0); MEAN CORPUSCULAR VOLUME 93 fL (80-96); MONOCYTES # (AUTO) 0.1 K/uL (0.1-1.30); MONOCYTES % (AUTO) 0.6 % (2.0-12.0); NEUTROPHILS # (AUTO) 16.3 K/uL (1.8-8.9); NEUTROPHILS % (AUTO) 95.5 % (43.0-81.0); PLATELET COUNT (AUTO) 322 K/uL (150-450); RED BLOOD CELL COUNT(AUTO) 2.67 MIL/uL (4.5-6.0); RED CELL DISTRIBUTION WIDTH 15.8 % (11.5-15.0); WHITE BLOOD COUNT (AUTO) 17.1 K/uL (4.3-11.0)
[2024-12-02 17:07] LABS: CALCIUM, SERUM 7.4 mg/dL (8.5-10.1); CREATININE 1.4 mg/dL (0.6-1.3); INR 1.54 (0.91-1.10); PARTIAL THROMBOPLASTIN TIME 30.6 SEC (24.3-34.3); POTASSIUM 3.5 mmol/L (3.5-5.1); PROTHROMBIN TIME 15.9 SECS (9.2-11.1)
[2024-12-02 17:15] LABS: D-DIMER 23.18 mg/L(FEU (0.17-0.50)
[2024-12-03] VITALS (10 sets, daily range): BP systolic 135–154; BP diastolic 69–83; TEMP 97.4–99.7; O2SAT 96–99
[2024-12-03 06:53] LABS: BASOPHILS % (AUTO) 0.1 % (0.0-2.0); EOSINOPHILS # (AUTO) 0.1 K/uL (0.0-0.7); EOSINOPHILS % (AUTO) 0.6 % (0.0-6.0); HEMATOCRIT 23 % (39-51); HEMOGLOBIN 7.1 g/dL (13.5-17.5); LYMPHOCYTES # (AUTO) 0.7 K/uL (0.8-4.8); LYMPHOCYTES % (AUTO) 4.2 % (20.0-44.0); MEAN CORPUSCULAR HEMOGLOBIN 30 PG (26.0-33.0); MEAN CORPUSCULAR HGB CONC 31 g/dl (31.0-36.0); MEAN CORPUSCULAR VOLUME 95 fL (80-96); MONOCYTES # (AUTO) 0.3 K/uL (0.1-1.30); MONOCYTES % (AUTO) 2.1 % (2.0-12.0); NEUTROPHILS # (AUTO) 14.7 K/uL (1.8-8.9); PLATELET COUNT (AUTO) 228 K/uL (150-450); RED BLOOD CELL COUNT(AUTO) 2.41 MIL/uL (4.5-6.0); RED CELL DISTRIBUTION WIDTH 15.9 % (11.5-15.0); WHITE BLOOD COUNT (AUTO) 15.8 K/uL (4.3-11.0)
[2024-12-03 07:15] LABS: CALCIUM, SERUM 7.3 mg/dL (8.5-10.1); CREATININE 1.2 mg/dL (0.6-1.3); POTASSIUM 3.1 mmol/L (3.5-5.1)
[2024-12-03] MEDS: IV D5W 1,000 ML IV PRN (11:13)
[2024-12-03] MEDS: POTASSIUM CL. PREMIX PERIPHER. 50 ML IV SCH (12:48)
[2024-12-03 14:10] LABS: HEMOGLOBIN 6.8 g/dL (13.5-17.5)
[2024-12-03] MEDS: diphenhydrAMINE HCL 50 MG/ML VIAL IV ONE (20:31)
[2024-12-03] MEDS: ACETAMINOPHEN 325 MG TABLET PO PRN (20:31)
[2024-12-04] VITALS (7 sets, daily range): BP systolic 125–161; BP diastolic 74–87; TEMP 97.7–98.6; O2SAT 98–100
[2024-12-04 07:00] LABS: BASOPHILS % (AUTO) 0.1 % (0.0-2.0); EOSINOPHILS # (AUTO) 0.2 K/uL (0.0-0.7); EOSINOPHILS % (AUTO) 0.9 % (0.0-6.0); HEMATOCRIT 25 % (39-51); HEMOGLOBIN 8.2 g/dL (13.5-17.5); LYMPHOCYTES # (AUTO) 0.7 K/uL (0.8-4.8); LYMPHOCYTES % (AUTO) 4.1 % (20.0-44.0); MEAN CORPUSCULAR HEMOGLOBIN 30 PG (26.0-33.0); MEAN CORPUSCULAR HGB CONC 33 g/dl (31.0-36.0); MEAN CORPUSCULAR VOLUME 91 fL (80-96); MONOCYTES # (AUTO) 0.3 K/uL (0.1-1.30); MONOCYTES % (AUTO) 1.6 % (2.0-12.0); NEUTROPHILS # (AUTO) 16.6 K/uL (1.8-8.9); NEUTROPHILS % (AUTO) 93.3 % (43.0-81.0); PLATELET COUNT (AUTO) 272 K/uL (150-450); RED BLOOD CELL COUNT(AUTO) 2.78 MIL/uL (4.5-6.0); RED CELL DISTRIBUTION WIDTH 16.4 % (11.5-15.0); WHITE BLOOD COUNT (AUTO) 17.7 K/uL (4.3-11.0)
[2024-12-04 07:59] LABS: CALCIUM, SERUM 7.5 mg/dL (8.5-10.1); POTASSIUM 3.6 mmol/L (3.5-5.1)
[2024-12-04 08:10] LABS: *SPE A/G RATIO 0.4 (0.7-1.7); *SPE ALBUMIN 1.4 g/dL (2.9-4.4); *SPE ALPHA-1-GLOBULIN 0.4 g/dL (0.0-0.4); *SPE ALPHA-2-GLOBULIN 0.8 g/dL (0.4-1.0); *SPE BETA GLOBULIN 0.7 g/dL (0.7-1.3); *SPE GLOBULIN, TOTAL 3.4 g/dL (2.2-3.9); *SPE M-SPIKE Not Observed g/dL (Not Observed); *SPE PROTEIN TOTAL 4.8 g/dL (6.0-8.5); *SPEGAMMA GLOBULIN 1.4 g/dL (0.4-1.8)
[2024-12-04 08:57] LABS: MAGNESIUM 2.1 mg/dL (1.8-2.4); PHOSPHORUS 3.1 mg/dL (2.5-4.9)
[2024-12-05] VITALS: BP 136/87; TEMP 98.4; O2SAT 99
[2024-12-05 05:00] VITALS: BP 139/82; TEMP 97.9; O2SAT 99
[2024-12-05 06:32] LABS: BASOPHILS % (AUTO) 0.2 % (0.0-2.0); EOSINOPHILS # (AUTO) 0.1 K/uL (0.0-0.7); EOSINOPHILS % (AUTO) 0.7 % (0.0-6.0); HEMATOCRIT 24 % (39-51); HEMOGLOBIN 7.9 g/dL (13.5-17.5); LYMPHOCYTES # (AUTO) 0.8 K/uL (0.8-4.8); LYMPHOCYTES % (AUTO) 4.6 % (20.0-44.0); MEAN CORPUSCULAR HEMOGLOBIN 29 PG (26.0-33.0); MEAN CORPUSCULAR HGB CONC 33 g/dl (31.0-36.0); MEAN CORPUSCULAR VOLUME 88 fL (80-96); MONOCYTES # (AUTO) 0.4 K/uL (0.1-1.30); MONOCYTES % (AUTO) 2.2 % (2.0-12.0); NEUTROPHILS # (AUTO) 16.2 K/uL (1.8-8.9); NEUTROPHILS % (AUTO) 92.3 % (43.0-81.0); PLATELET COUNT (AUTO) 356 K/uL (150-450); RED BLOOD CELL COUNT(AUTO) 2.78 MIL/uL (4.5-6.0); RED CELL DISTRIBUTION WIDTH 15.3 % (11.5-15.0); WHITE BLOOD COUNT (AUTO) 17.5 K/uL (4.3-11.0)
[2024-12-05 07:14] LABS: BILIRUBIN,DIRECT 0.3 mg/dL (0.0-0.2); BILIRUBIN,TOTAL 0.4 mg/dL (0.2-1.0); CALCIUM, SERUM 7.7 mg/dL (8.5-10.1); CREATININE 1.2 mg/dL (0.6-1.3); POTASSIUM 3.3 mmol/L (3.5-5.1); TOTAL PROTEIN, SERUM 5.9 g/dL (6.4-8.2)
[2024-12-05] MEDS: ONDANSETRON HCL/PF 4 MG/2 ML VIAL IVP PRN (07:18)
[2024-12-05 08:00] VITALS: BP 112/67; TEMP 98.2; O2SAT 93
[2024-12-05 08:14] LABS: ALBUMIN 1.1 g/dL (3.4-5.0)
[2024-12-05] MEDS: POTASSIUM CHLORIDE 20 MEQ TAB.PRT.SR PO SCH (11:00)
[2024-12-05] MEDS: MORPHINE SULFATE INJ 2 MG/ML DISP.SYRIN IV ONE (11:12)
[2024-12-05] MEDS: MORPHINE SULFATE INJ 2 MG/ML DISP.SYRIN IV PRN (12:09)
[2024-12-05] MEDS: LORAZEPAM INJ 2 MG/ML VIAL IV ONE (14:58)
[2024-12-05 20:07] LABS: VITAMIN B1 THIAMINE,WB 38.5 nmol/L (66.5-200.0)
== END 2024-12-05 17:39 | DRG 720 ==
LOC: ER 18:25 → TRANSITION 20:50 → TELE 21:38 → MED 11-24 14:15 → TELE 11-26 10:20
PROVIDERS: ADMIT Nurse Practitioner Acute Care; ATTEND Nurse Practitioner Acute Care
PROC: 30233N1 Transfusion of Nonautologous Red Blood Cells into Peripheral Vein, Percutaneous Approach (ICD-10-PCS; 2024-11-23)
PROC: 05HA33Z Insertion of Infusion Device into Left Brachial Vein, Percutaneous Approach (ICD-10-PCS; 2024-11-23)
PROC: 0DB68ZX Excision of Stomach, Via Natural or Artificial Opening Endoscopic, Diagnostic (ICD-10-PCS; principal; 2024-11-25)
PROC: 0DJD8ZZ Inspection of Lower Intestinal Tract, Via Natural or Artificial Opening Endoscopic (ICD-10-PCS; 2024-11-25)
PROC: 0DBH8ZX Excision of Cecum, Via Natural or Artificial Opening Endoscopic, Diagnostic (ICD-10-PCS; 2024-11-27)
PROC: 0DBP8ZX Excision of Rectum, Via Natural or Artificial Opening Endoscopic, Diagnostic (ICD-10-PCS; 2024-11-27)
PROC: 0DBC8ZX Excision of Ileocecal Valve, Via Natural or Artificial Opening Endoscopic, Diagnostic (ICD-10-PCS; 2024-11-27)
PROC: 0F9130Z Drainage of Right Lobe Liver with Drainage Device, Percutaneous Approach (ICD-10-PCS; 2024-12-02)
DX: A41.9 Sepsis, unspecified organism (principal); I63.9 Cerebral infarction, unspecified; J69.0 Pneumonitis due to inhalation of food and vomit; K75.0 Abscess of liver; G92.8 Other toxic encephalopathy; E43 Unspecified severe protein-calorie malnutrition; D61.818 Other pancytopenia; I66.01 Occlusion and stenosis of right middle cerebral artery; R64 Cachexia; N17.9 Acute kidney failure, unspecified; K85.91 Acute pancreatitis with uninfected necrosis, unspecified; Z51.5 Encounter for palliative care; Z66 Do not resuscitate; K57.11 Diverticulosis of small intestine without perforation or abscess with bleeding; D68.9 Coagulation defect, unspecified; I85.00 Esophageal varices without bleeding; E87.1 Hypo-osmolality and hyponatremia; D62 Acute posthemorrhagic anemia; Z68.1 Body mass index [BMI] 19.9 or less, adult; I86.4 Gastric varices; F10.11 Alcohol abuse, in remission; K64.1 Second degree hemorrhoids; E87.6 Hypokalemia; E87.0 Hyperosmolality and hypernatremia; E88.09 Other disorders of plasma-protein metabolism, not elsewhere classified; I65.03 Occlusion and stenosis of bilateral vertebral arteries; K62.6 Ulcer of anus and rectum; I67.2 Cerebral atherosclerosis; I10 Essential (primary) hypertension; G93.89 Other specified disorders of brain; D12.0 Benign neoplasm of cecum; J98.11 Atelectasis; I08.2 Rheumatic disorders of both aortic and tricuspid valves; K25.9 Gastric ulcer, unspecified as acute or chronic, without hemorrhage or perforation; Z78.1 Physical restraint status; Z86.73 Personal history of transient ischemic attack (TIA), and cerebral infarction without residual deficits; Z87.440 Personal history of urinary (tract) infections; Z53.20 Procedure and treatment not carried out because of patient's decision for unspecified reasons; C22.9 Malignant neoplasm of liver, not specified as primary or secondary; E05.90 Thyrotoxicosis, unspecified without thyrotoxic crisis or storm
CPT/HCPCS: 36415; 70450-TC; 70496-TC; 70498-TC; 70551-TC; 71045-TC; 74181-TC; 75989-TC; 80048-TC; 80061-TC; 80076-TC; 80202-TC; 81001; 82105; 82140-TC; 82378; 82607-TC; 82728-TC; 82784; 82962-TC; 83540-TC; 83605-TC; 83615-TC; 83690-TC; 83735-TC; 83921; 84100-TC; 84155; 84165; 84425; 84443-TC; 84484-TC; 85025-TC; 85027-TC; 85396; 85610-TC; 85730-TC; 86225; 86235; 86301; 86334; 86431-TC; 86704; 86803; 86850-TC; 87040-TC; 87086-TC; 87340; 87806; 88305-TC; 88312-TC; 88313-TC; 92526; 92611-TC; 93307-TC; 97110-TC; 97112-TC; 97116-TC; 97530-TC; 97535-TC; A4216; A4223; A9560; G0378; G0480; J0692; J1200; J1450; J1650; J2060; J2250; J2270; J2405; J2470; J2543; J2704; J3010; J3370; J3371; J3480; J3490; J7030; J7042; J7050; J7060; J7070; P9016; Q9967